=== PATIENT | female | born 1995 | race American Indian/Alaskan Native ===

== ENCOUNTER 2018-06-27 08:54 | Emergency (ER) | payer OTHER ==
--- NOTE | 2018-06-27 09:05 | Emergency Department Report ---
ED Recheck HPI - General Chief Complaint: Shoulder Injury Stated Complaint: RT SIDE RESTRICTION Time Seen by Provider: 06/27/18 09:00 Source: patient Mode of arrival: Ambulatory Limitations: No Limitations - History of Present Illness Initial Comments: Patient is a 23-year-old female who comes to the ER today after hurting her shoulder 2 weeks ago. [place] to work but without enough. She comes to the ER for a return to work note. She is having no problems with her shoulder. She has full range of motion. Past medical history none Home medications none MD Complaint: other - Related Data Allergies Allergy/AdvReac Type Severity Reaction Status Date / Time No Known Allergies Allergy Unverified 06/27/18 08:58 ED Review of Systems ROS: Stated complaint: RT SIDE RESTRICTION Other details as noted in HPI Comment: All other systems reviewed and negative Constitutional: denies: chills Eyes: denies: eye pain ENT: denies: ear pain Respiratory: denies: cough Cardiovascular: denies: palpitations Endocrine: denies: see HPI Gastrointestinal: denies: nausea Genitourinary: denies: urgency Musculoskeletal: as per HPI. denies: back pain Skin: denies: lesions Neurological: denies: headache Psychiatric: denies: anxiety Hematological/Lymphatic: denies: easy bleeding ED Past Medical Hx - Past Medical History Previous Medical History?: No - Surgical History Past Surgical History?: No - Family History Family history: no significant - Social History Smoking Status: Never Smoker Substance Use Type: None ED Physical Exam - General Limitations: No Limitations General appearance: alert - Head Head exam: Present: atraumatic - Eye Eye exam: Present: normal appearance - ENT ENT exam: Present: mucous membranes moist - Neck Neck exam: Present: normal inspection - Respiratory Respiratory exam: Present: normal lung sounds bilaterally - Cardiovascular Cardiovascular Exam: Present: regular rate - GI/Abdominal GI/Abdominal exam: Present: soft, normal bowel sounds - Extremities Exam Extremities exam: Present: normal inspection, full ROM, normal capillary refill. Absent: tenderness, pedal edema, joint swelling - Back Exam Back exam: Present: normal inspection, full ROM - Neurological Exam Neurological exam: Present: alert, oriented X3 - Psychiatric Psychiatric exam: Present: normal affect, normal mood - Skin Skin exam: Present: warm, dry, intact ED Course Vital Signs 06/27/18 09:00 Temperature 98 F Pulse Rate 57 L Respiratory 16 Rate Blood Pressure 108/54 [Left] O2 Sat by Pulse 100 Oximetry ED Recheck MDM - Core Measures Measure Exclusions: not indicated - Medical Decision Making needs rtw note she was lifting 2 w ago and felt a pop no further problems at this time Vital Signs 06/27/18 09:00 Temperature 98 F Pulse Rate 57 L Respiratory 16 Rate Blood Pressure 108/54 [Left] O2 Sat by Pulse 100 Oximetry Critical care attestation.: If time is entered above; I have spent that time in minutes in the direct care of this critically ill patient, excluding procedure time. ED Disposition Clinical Impression: Wellness examination Disposition: DC-01 TO HOME OR SELFCARE Is pt being admited?: No Does the pt Need Aspirin: No Condition: Stable Additional Instructions: return to work without restriction any additional issues see Dr Gibson Referral below Referrals: HILARIA GIBSON MD [Staff Physician] - 3-5 Days Forms: Work/School Release Form(ED) Time of Disposition: 09:04
== END 2018-06-27 09:24 | disposition home or self-care (01) ==
LOC: ED 08:54
DX: Z00.00 Encounter for general adult medical examination without abnormal findings (principal)
CPT/HCPCS: 99282

== ENCOUNTER 2018-11-22 09:42 | Emergency (ER) | payer SELFPAY ==
[2018-11-22 09:50] VITALS: BP 106/63
--- NOTE | 2018-11-22 10:19 | Emergency Department Report ---
Chief Complaint: Extremity Problem,Nontraumatic Stated Complaint: LFT KNEE PAIN Time Seen by Provider: 11/22/18 10:17 - HPI History of Present Illness: 23 yo female presents with minor knee pain on left extremity for one week. No hx of trauma. On my exam, neurovascularly intact. REferred to orthopedic surgeon. MSE performed completed. NO evidence of emergent condition or limb threatening disease entity. - Exam Vital Signs: Vital Signs 11/22/18 09:48 Temperature 98.3 F Pulse Rate 53 L Respiratory 16 Rate Blood Pressure 106/63 O2 Sat by Pulse 100 Oximetry MSE screening note: Focused history and physical exam performed. Due to findings the following was ordered: ED Disposition for MSE Clinical Impression: Knee pain, left Disposition: Z-07 MED SCREENING EXAM-LEFT Is pt being admited?: No Does the pt Need Aspirin: No Condition: Stable Referrals: HILARIA MÁRQUEZ MD [Staff Physician] - as needed Forms: Work/School Release Form(ED)
== END 2018-11-22 10:23 | disposition left against medical advice (07) ==
LOC: ED 09:42
DX: M25.562 Pain in left knee (principal); Z53.21 Procedure and treatment not carried out due to patient leaving prior to being seen by health care provider

== ENCOUNTER 2018-12-08 09:11 | Emergency (ER) | payer OTHER ==
[2018-12-08 09:18] VITALS: BP 113/55
--- NOTE | 2018-12-08 10:20 | Emergency Department Report ---
ED General Adult HPI - General Chief complaint: Urogenital-Female Stated complaint: LUMP ON BREAST Time Seen by Provider: 12/08/18 09:55 Source: patient Mode of arrival: Ambulatory Limitations: No Limitations - History of Present Illness Initial comments: Patient is 23 years old female with no significant past medical history. Patient presented to the ER complaining of left breast mass and tenderness for the last 3 days. Patient denied any nipple discharge, fever or chills, nausea or vomiting. Patient stated that her period is irregular because she is taking oral contraceptive pills. She stated that she had some abdominal cramping this morning. - Related Data Allergies Allergy/AdvReac Type Severity Reaction Status Date / Time No Known Allergies Allergy Unverified 06/27/18 08:58 ED Review of Systems ROS: Stated complaint: LUMP ON BREAST Other details as noted in HPI Comment: All other systems reviewed and negative Constitutional: denies: chills, fever Respiratory: denies: cough, shortness of breath, SOB with exertion, wheezing Cardiovascular: denies: chest pain, palpitations Gastrointestinal: denies: abdominal pain, nausea, vomiting ED Past Medical Hx - Past Medical History Previous Medical History?: No - Surgical History Past Surgical History?: No Hx Coronary Stent: No Hx Open Heart Surgery: No Hx Pacemaker: No Hx Internal Defibrillator: No Hx Cholecystectomy: No Hx Appendectomy: No Hx Breast Surgery: No - Social History Smoking Status: Never Smoker Substance Use Type: None ED Physical Exam - General Limitations: No Limitations General appearance: alert, in no apparent distress - Head Head exam: Present: atraumatic - Eye Eye exam: Present: normal appearance, PERRL - ENT ENT exam: Present: normal exam, normal orophraynx, mucous membranes moist - Neck Neck exam: Present: normal inspection, full ROM. Absent: tenderness, meningismus, lymphadenopathy, thyromegaly - Respiratory Respiratory exam: Present: normal lung sounds bilaterally - Cardiovascular Cardiovascular Exam: Present: normal heart sounds - GI/Abdominal GI/Abdominal exam: Present: soft. Absent: distended, tenderness, guarding - Extremities Exam Extremities exam: Present: normal inspection - Neurological Exam Neurological exam: Present: alert, oriented X3, CN II-XII intact - Skin Skin exam: Present: other (right breast exam showed a deep soft tissue mass, mobile, tender to palpation.) ED Course Vital Signs 12/08/18 09:16 Temperature 98.5 F Pulse Rate 54 L Respiratory 18 Rate Blood Pressure 113/55 [Right] O2 Sat by Pulse 100 Oximetry ED Medical Decision Making - Lab Data Result diagrams: 12/08/18 11:30 12/08/18 11:30 - Radiology Data Radiology results: report reviewed Referring Physician: LIAT JURADO Patient Name: AMRIT PABON Date of : 1995 Sex: Female Report Date: 2018-12-08 Report Status: Finalized Findings [facility] [address] [place] [address] Ultrasound Report Signed Patient: AMRIT PABON MR #: [id number] : 1995 Acct:[id number] Age/Sex: 23 / F ADM Date: 12/08/18 Loc: ED Attending Dr: Ordering Physician: LIAT JURADO Date of Service: 12/08/18 Procedure(s): US OB <= 14 weeks fetus Accession Number(s): [id number] cc: LIAT JURADO US OB <= 14 weeks fetus INDICATION / CLINICAL INFORMATION: abdominal pain in . COMPARISON: None available. FINDINGS: A single live fetus of approximately 5 weeks 6 days gestational age is seen in the uterus. A yolk sac and pole are identified. heart rate is 96. A 2.2 cm cyst is seen in the right ovary. The left ovary is normal. IMPRESSION: Single live fetus of approximately 5 weeks 6 days gestational age in the uterus.. Heart rate is 96. A repeat ultrasound is recommended to reassess the heart rate in a few days. There is a 2.2 cm right ovarian cyst Signer Name: Mason Collins MD FACR Signed: 12/08/2018 2:33 PM Workstation Name: [id number] Transcribed By: MS Dictated By: Mason Collins MD Electronically Authenticated By: Mason Collins MD Signed Date/Time: 12/08/18 1433 DD/ 143 TD/TT: - Medical Decision Making Patient is 23 years old female with no significant past medical history. Patient presented to the ER complaining of left breast mass and tenderness for the last 3 days. Patient denied any nipple discharge, fever or chills, nausea or vomiting. Patient stated that her period is irregular because she is taking oral contraceptive pills. She stated that she had some abdominal cramping this morning. Patient just came back positive for . Ultrasound showed a live intrauterine fetus at the gestational age of 5 weeks and 6 days. Right ovarian cyst. Patient is given my [facility] to follow-up with in the next 2-3 days patient also given a prescription for vitamins. She advised to return to the ER if symptoms are not improved. Critical care attestation.: If time is entered above; I have spent that time in minutes in the direct care of this critically ill patient, excluding procedure time. ED Disposition Clinical Impression: Abdominal pain affecting , antepartum, Breast tenderness in female Disposition: DC-01 TO HOME OR SELFCARE Is pt being admited?: No Condition: Stable Instructions: Abdominal Pain in (ED) Referrals: [facility] [Provider Group] - 3-5 Days
[2018-12-08 10:50] LABS: HCG Qualitative,Urine Positive (Negative)
[2018-12-08 11:44] LABS: Basophils % (Auto) 0.5 % (0.0-1.8); Eosinophils # (Auto) 0.2 K/mm3 (0.0-0.4); Eosinophils % (Auto) 3.2 % (0.0-4.3); Hematocrit 40.6 % (30.3-42.9); Hemoglobin 13.9 gm/dl (10.1-14.3); Lymphocytes # (Auto) 1.3 K/mm3 (1.2-5.4); Lymphocytes % (Auto) 24.8 % (13.4-35.0); Mean Corpuscular HGB Conc 34 % (30-34); Mean Corpuscular Volume 91 fl (79-97); Monocytes # (Auto) 0.5 K/mm3 (0.0-0.8); Monocytes % (Auto) 8.8 % (0.0-7.3); Platelet Count 236 K/mm3 (140-440); Red Blood Count 4.45 M/mm3 (3.65-5.03); Red Cell Distribution Width 12.9 % (13.2-15.2)
[2018-12-08 12:04] LABS: BUN/Creatinine Ratio 20; Blood Urea Nitrogen 14 mg/dL (7-17); Calcium 9.2 mg/dL (8.4-10.2); Hemolysis Index 6
--- NOTE | 2018-12-08 14:37 | Ultrasound Report ---
US OB <= 14 weeks fetus INDICATION / CLINICAL INFORMATION: abdominal pain in . COMPARISON: None available. FINDINGS: A single live fetus of approximately 5 weeks 6 days gestational age is seen in the uterus. A yolk sac and pole are identified. heart rate is 96. A 2.2 cm cyst is seen in the right ovary. The left ovary is normal. IMPRESSION: Single live fetus of approximately 5 weeks 6 days gestational age in the uterus.. Heart rate is 96. A repeat ultrasound is recommended to reassess the heart rate in a few days. There is a 2.2 cm r ight ovarian cyst Signer Name: Mason Collins MD FACR Signed: 12/08/2018 2:33 PM Workstation Name: [id number]
--- NOTE | 2018-12-08 14:48 | Ultrasound Report ---
US OB transvaginal INDICATION / CLINICAL INFORMATION: ABDOMINAL PAIN. COMPARISON: None available. FINDINGS: Single live fetus of approximately 5 weeks 6 days gestational age in the uterus. heart rate is 96. There is a 2.2 cm cystic lesion in the right ovary. The left ovary is unremarkable in appearance. IMPRESSION: Single live fetus of approximately 5 weeks 6 days gestational age in the uterus with heart rate 96. Since the heart rate is low, a repeat study should be obtained to reassess heart rat e and a few days. 2.2 cm cystic lesion in the right ovary Signer Name: Mason Collins MD FACR Signed: 12/08/2018 2:44 PM Workstation Name: [id number]
== END 2018-12-08 15:14 | disposition home or self-care (01) ==
LOC: ED 09:11
DX: O92.29 Other disorders of breast associated with pregnancy and the puerperium (principal); Z3A.01 Less than 8 weeks gestation of pregnancy
CPT/HCPCS: 36415; 76801; 76817; 80048; 81025; 84702; 85025

== ENCOUNTER 2018-12-21 19:13 | Emergency (ER) | payer OTHER ==
[2018-12-21 20:37] VITALS: BP 104/54
[2018-12-21 21:23] LABS: Basophils % (Auto) 0.5 % (0.0-1.8); Eosinophils # (Auto) 0.2 K/mm3 (0.0-0.4); Eosinophils % (Auto) 3.4 % (0.0-4.3); Lymphocytes # (Auto) 2.1 K/mm3 (1.2-5.4); Lymphocytes % (Auto) 29.4 % (13.4-35.0); Mean Corpuscular HGB Conc 33 % (30-34); Mean Corpuscular Volume 93 fl (79-97); Monocytes # (Auto) 0.6 K/mm3 (0.0-0.8); Monocytes % (Auto) 8.1 % (0.0-7.3); Platelet Count 247 K/mm3 (140-440); Red Blood Count 4.21 M/mm3 (3.65-5.03); Red Cell Distribution Width 12.8 % (13.2-15.2)
[2018-12-21 21:37] LABS: Bilirubin,Urine NEG (Negative); Blood,Urine MOD (Negative); Color,Urine Yellow (Yellow); Protein,Urine <15 mg/dL mg/dL (Negative)
--- NOTE | 2018-12-22 00:13 | Ultrasound Report ---
ULTRASOUND OBSTETRIC Indication: vaginal bleed COMPARISON: 12/08/2018 Findings: There is a single, living intrauterine . [place]it-rump length = 1.49 cm = 7 weeks, 6 day(s). heart rate is 161 beats per minute. The ovaries are normal. There is no free fluid. Impression: Single, living intrauterine with estimated sonographic age of 7 weeks, 6 day(s). Signer Name: Darinel Ying MD Signed: 12/22/2018 12:09 AM Workstation Name: [id number]
--- NOTE | 2018-12-22 00:45 | Emergency Department Report ---
ED Female HPI - General Chief complaint: Vaginal Bleeding Stated complaint: BLEEDING, 8 WEEKS Time Seen by Provider: 12/22/18 00:39 Source: patient Mode of arrival: Ambulatory Limitations: No Limitations - History of Present Illness Initial comments: 23-year-old -Swedish female presents to the emergency room reporting that she is approximately 8 weeks with abdominal pain and vaginal spotting that started today. Patient is not sure when her last menstrual period. Patient has not started care. She does report having an appointment next week at [facility]. Patient reports she's having spotting on the toilet paper but has not filled any pads. Patient denies any abdominal pain at this moment. She has no past medical history currently takes no medications on a daily basis and has no known drug allergies. MD Complaint: vaginal bleeding Onset/Timin Radiation: suprapubic Severity scale (0 -10): 0 Consistency: now resolved Are you Now?: Yes Associated Symptoms: vaginal bleeding - Related Data Sexually active: Yes : 1 Previous Rx's Medication Instructions Recorded Last Taken Type Vit-Fe Fumar-FA [ 1 tab PO QDAY #30 tablet 12/08/18 Unknown Rx Vitamin] Allergies Allergy/AdvReac Type Severity Reaction Status Date / Time No Known Allergies Allergy Unverified 06/27/18 08:58 ED Review of Systems ROS: Stated complaint: BLEEDING, 8 WEEKS Other details as noted in HPI Comment: All other systems reviewed and negative ED Past Medical Hx - Past Medical History Previous Medical History?: No - Surgical History Past Surgical History?: No Hx Coronary Stent: No Hx Open Heart Surgery: No Hx Pacemaker: No Hx Internal Defibrillator: No Hx Cholecystectomy: No Hx Appendectomy: No Hx Breast Surgery: No - Social History Smoking Status: Never Smoker Substance Use Type: None - Medications Home Medications: Home Medications Medication Instructions Recorded Confirmed Last Taken Type Vit-Fe Fumar-FA [ 1 tab PO QDAY #30 tablet 12/08/18 Unknown Rx Vitamin] ED Physical Exam - General Limitations: No Limitations General appearance: alert, in no apparent distress - Head Head exam: Present: atraumatic, normocephalic - Eye Eye exam: Present: normal appearance - ENT ENT exam: Present: mucous membranes moist - Neck Neck exam: Present: normal inspection - Respiratory Respiratory exam: Present: normal lung sounds bilaterally. Absent: respiratory distress - Cardiovascular Cardiovascular Exam: Present: regular rate, normal rhythm. Absent: systolic murmur, diastolic murmur, rubs, gallop - GI/Abdominal GI/Abdominal exam: Present: soft, normal bowel sounds. Absent: distended, t enderness - Extremities Exam Extremities exam: Present: normal inspection - Back Exam Back exam: Present: normal inspection - Neurological Exam Neurological exam: Present: alert, oriented X3 - Psychiatric Psychiatric exam: Present: normal affect, normal mood - Skin Skin exam: Present: warm, dry, intact, normal color. Absent: rash ED Course Vital Signs 12/21/18 20:34 Temperature 98.7 F Pulse Rate 53 L Respiratory 16 Rate Blood Pressure 104/54 O2 Sat by Pulse 100 Oximetry ED Medical Decision Making - Lab Data Result diagrams: 12/21/18 20:52 - Medical Decision Making 23-year-old -Swedish female presents to the emergency room reporting that she is approximately 8 weeks with abdominal pain and vaginal spotting that started today. Patient is not sure when her last menstrual period. Patient has not started care. She does report having an appointment next week at [facility]. Patient reports she's having spotting on the toilet paper but has not filled any pads. Patient denies any abdominal pain at this moment. She has no past medical history currently takes no medications on a daily basis and has no known drug allergies. Critical care attestation.: If time is entered above; I have spent that time in minutes in the direct care of this critically ill patient, excluding procedure time. ED Disposition Clinical Impression: Threatened miscarriage in early Qualifiers: Weeks of gestation: 8 weeks Qualified Code(s): Z3A.08 - 8 weeks gestation of Disposition: DC-01 TO HOME OR SELFCARE Is pt being admited?: No Does the pt Need Aspirin: No Condition: Stable Instructions: Threatened Miscarriage (ED) Referrals: PRIMARY CARE, [Primary Care Provider] - 3-5 Days [facility] [Outside] - 3-5 Days
== END 2018-12-22 00:55 | disposition home or self-care (01) ==
LOC: ED 19:13
DX: O20.0 Threatened abortion (principal); Z3A.08 8 weeks gestation of pregnancy
CPT/HCPCS: 36415; 76801; 81001; 84702; 85025; 86900; 86901

== ENCOUNTER 2019-02-25 19:45 | Emergency (ER) | payer MEDICAID ==
[2019-02-25 20:46] VITALS: BP 112/50
[2019-02-25 23:50] LABS: Bilirubin,Urine NEG (Negative); Blood,Urine NEG (Negative); Color,Urine Yellow (Yellow); Mucus,Urine FEW /HPF; Protein,Urine <15 mg/dL mg/dL (Negative); Urobilinogen,Urine < 2.0 mg/dL (<2.0)
[2019-02-25] MEDS ORDERED: ONDANSETRON 4 MG ODT TAB PO ONE (23:52)
[2019-02-25] MEDS ORDERED: ACETAMINOPHEN 500 MG TAB PO ONE (23:52)
--- NOTE | 2019-02-25 23:58 | Emergency Department Report ---
ED Female HPI - General Chief complaint: Abdominal Pain Stated complaint: EMESIS/ABD CRAMPS/17WKS Time Seen by Provider: 02/25/19 23:52 Source: patient Mode of arrival: Ambulatory Limitations: No Limitations - History of Present Illness Initial comments: Joy is a healthy 23 yo female without significant past medical hx who presents with back cramping and pelvic cramping for 2 weeks. She has been only able to tolerate certain foods. Denies vaginal bleeding. Denies dysuria. Denies fever. [place]. She plans to move to [place]. She has not received any care. She is currently 18 weeks 1 day according to dates According to EMR, US obtained here in December confirmed IUP. Complaint: pelvic pain -: Gradual, week(s) (2) Severity: mild Quality: cramping Consistency: constant Improves with: none Worsens with: none Are you Now?: Yes Last Menstrual Period: 10/21/18 EDC: 07/28/19 - Related Data Previous Rx's Medication Instructions Recorded Last Taken Type Vit-Fe Fumar-FA [ 1 tab PO QDAY #30 tablet 12/08/18 Unknown Rx Vitamin] Ondansetron [Zofran Odt] 4 mg PO Q8HR PRN #10 tab.rapdis 02/25/19 Unknown Rx Allergies Allergy/AdvReac Type Severity Reaction Status Date / Time No Known Allergies Allergy Unverified 06/27/18 08:58 ED Review of Systems ROS: Stated complaint: EMESIS/ABD CRAMPS/17WKS Other details as noted in HPI Comment: All other systems reviewed and negative Constitutional: denies: fever, malaise Cardiovascular: denies: chest pain Gastrointestinal: abdominal pain, nausea. denies: vomiting ED Past Medical Hx - Past Medical History Previous Medical History?: No - Surgical History Past Surgical History?: No Hx Coronary Stent: No Hx Open Heart Surgery: No Hx Pacemaker: No Hx Internal Defibrillator: No Hx Cholecystectomy: No Hx Appendectomy: No Hx Breast Surgery: No - Social History Smoking Status: Never Smoker Substance Use Type: None - Medications Home Medications: Home Medications Medication Instructions Recorded Confirmed Last Taken Type Vit-Fe Fumar-FA [ 1 tab PO QDAY #30 tablet 12/08/18 Unknown Rx Vitamin] Ondansetron [Zofran Odt] 4 mg PO Q8HR PRN #10 tab.rapdis 02/25/19 Unknown Rx ED Physical Exam - General Limitations: No Limitations General appearance: alert, in no apparent distress - Head Head exam: Present: atraumatic, normocephalic - Eye Eye exam: Present: normal appearance - ENT ENT exam: Present: mucous membranes moist - Neck Neck exam: Present: normal inspection, full ROM - Respiratory Respiratory exam: Present: normal lung sounds bilaterally. Absent: respiratory distress, wheezes, rales, rhonchi - Cardiovascular Cardiovascular Exam: Present: regular rate, normal rhythm, normal heart sounds. Absent: systolic murmur, diastolic murmur, rubs, gallop - GI/Abdominal GI/Abdominal exam: Present: soft, normal bowel sounds. Absent: distended, tenderness, guarding, rebound - Extremities Exam Extremities exam: Present: normal inspection - Back Exam Back exam: Present: normal inspection - Neurological Exam Neurological exam: Present: alert, oriented X3 - Psychiatric Psychiatric exam: Present: normal affect, normal mood - Skin Skin exam: Present: warm, dry, intact, normal color. Absent: rash ED Course Vital Signs 02/25/19 20:00 Temperature 98.2 F Pulse Rate 67 Respiratory 18 Rate Blood Pressure 112/50 O2 Sat by Pulse 98 Oximetry ED Medical Decision Making - Lab Data Laboratory Results - last 24 hr 02/25/19 Unknown Urine Color Yellow Urine Turbidity Slightly-cloudy Urine pH 5.0 Ur Specific [place] 1.015 Urine Protein <15 mg/dl Urine Glucose (UA) Neg Urine Ketones Neg Urine Blood Neg Urine Nitrite Neg Urine Bilirubin Neg Urine Urobilinogen < 2.0 Ur Leukocyte Esterase Neg Urine WBC (Auto) 1.0 Urine RBC (Auto) 2.0 U Epithel Cells (Auto) 5.0 Urine Mucus Few - Medical Decision Making Pelvic back pain likely round ligament pain. Has intact appetite but only able to tolerate certain foods. No vaginal bleeding. She appears well, smiling and laughing during examination. I stressed the need for care. She came to [place] to cancel medicaid insurance. She will travel to [place] tomorrow. I did provide referral to local clinic. prescribed Zofran UA reviewed, unremarkable. Critical care attestation.: If time is entered above; I have spent that time in minutes in the direct care of this critically ill patient, excluding procedure time. ED Disposition Clinical Impression: Round ligament pain, Second trimester Disposition: DC- TO HOME OR SELFCARE Is pt being admited?: No Does the pt Need Aspirin: No Condition: Stable Instructions: Abdominal Pain in (ED) Prescriptions: Ondansetron [Zofran Odt] 4 mg PO Q8HR PRN #10 tab.rapdis PRN Reason: Nausea Referrals: [facility] [Outside] - 3-5 Days
== END 2019-02-26 00:36 | disposition home or self-care (01) ==
LOC: ED 19:45
DX: O26.892 Other specified pregnancy related conditions, second trimester (principal); R10.2 Pelvic and perineal pain; Z3A.18 18 weeks gestation of pregnancy
CPT/HCPCS: 81001; Q0162

== ENCOUNTER 2019-04-27 03:14 | Outpatient (CLI) | payer MEDICAID ==
[2019-04-27 04:00] VITALS: BP 103/55
[2019-04-27 04:56] LABS: Bacteria,Urine 1+ /HPF (Negative); Bilirubin,Urine NEG (Negative); Blood,Urine MOD (Negative); Color,Urine Yellow (Yellow); Urobilinogen,Urine < 2.0 mg/dL (<2.0)
[2019-04-27] MEDS ORDERED: LACTATED RINGERS 1,000 ML IV SCH (05:21)
[2019-04-27] MEDS ORDERED: LACTATED RINGERS 1,000 ML ONE (05:21)
== END 2019-04-27 07:05 | disposition home or self-care (01) ==
LOC: EDSTATUS 03:29 → TRG 03:37
PROVIDERS: ATTEND Obstetrics & Gynecology
DX: O26.892 Other specified pregnancy related conditions, second trimester (principal); R10.9 Unspecified abdominal pain; M54.5 Low back pain; R39.89 Other symptoms and signs involving the genitourinary system; O47.02 False labor before 37 completed weeks of gestation, second trimester; Z3A.26 26 weeks gestation of pregnancy
CPT/HCPCS: 59025; 81001; 87076; 87086; 87186; 96361; 96365; J0690; J7120; 96360

== ENCOUNTER 2019-05-24 00:52 | Inpatient (IN) | payer MEDICAID ==
[2019-05-24] MEDS ORDERED: LACTATED RINGERS 1,000 ML ONE (00:58)
[2019-05-24] MEDS ORDERED: ePHEDrine SULFATE 50 MG/1 ML INJ IV PRN ×2 (01:14→11:25)
[2019-05-24] MEDS ORDERED: TERBUTALINE 1 MG/1 ML INJ SUB-Q PRN (01:14)
[2019-05-24] MEDS ORDERED: TERBUTALINE 1 MG/1 ML INJ IVP PRN (01:14)
[2019-05-24] MEDS ORDERED: LIDOCAINE (2%) 20 MG/1 ML VIAL 20 ML MDV INFILTRATI ONE (01:14)
[2019-05-24] MEDS ORDERED: MINERAL OIL 30 ML ORAL LIQD PO PRN (01:14)
[2019-05-24] MEDS ORDERED: AMPICILLIN/NS 2 GM/100 ML 2 GM/100 ML BAG IV ONE (01:14)
[2019-05-24] MEDS ORDERED: hydrALAZINE 20 MG/1 ML INJ ONE (01:18)
[2019-05-24] MEDS ORDERED: MAGNESIUM SULFATE 4 GM/100 ML BAG IV ONE (01:20)
[2019-05-24] MEDS ORDERED: hydrALAZINE 20 MG/1 ML INJ IV PRN (01:21)
[2019-05-24] MEDS ORDERED: levETIRAcetam 1,000 MG in DEXTROSE 5% IN WATER 100 ML IV ONE (01:37)
[2019-05-24] MEDS ORDERED: MAGNESIUM SULFATE 40GM/1000ML 40 GM/1,000 ML BAG IV SCH (02:00)
[2019-05-24] MEDS ORDERED: OXYTOCIN 20 UNIT/1000ML DRIP 20 UNITS/1,000 ML BAG IV SCH ×3 (02:00→15:00)
[2019-05-24 02:11] LABS: Hematocrit 37.9 % (30.3-42.9); Hemoglobin 12.6 gm/dl (10.1-14.3); Mean Corpuscular HGB Conc 33 % (30-34); Mean Corpuscular Volume 93 fl (79-97); Red Blood Count 4.07 M/mm3 (3.65-5.03); Red Cell Distribution Width 13.3 % (13.2-15.2)
[2019-05-24 02:12] LABS: Basophils # (Auto) 0.1 K/mm3 (0.0-0.1); Basophils % (Auto) 0.9 % (0.0-1.8); Eosinophils # (Auto) 0.2 K/mm3 (0.0-0.4); Eosinophils % (Auto) 1.8 % (0.0-4.3); Lymphocytes # (Auto) 1.6 K/mm3 (1.2-5.4); Monocytes # (Auto) 0.8 K/mm3 (0.0-0.8); Monocytes % (Auto) 8.9 % (0.0-7.3); Platelet Count 255 K/mm3 (140-440)
[2019-05-24] MEDS ORDERED: SODIUM CHLORIDE 0.45% 1000 ML 1,000 ML IV ONE (02:14)
[2019-05-24 02:33] LABS: Alanine Aminotransferase 23 units/L (7-56)
[2019-05-24 02:42] LABS: Hepatitis C Virus Antibody Non-Reactive (NonReactive)
--- NOTE | 2019-05-24 02:56 | Ultrasound Report ---
ULTRASOUND OBSTETRIC, follow-up Indication: seizure Findings: There is a single intrauterine . BPD = 7.3 cm = 29 weeks, 3 day(s). Head circumference = 25.9 cm = 28 weeks, 2 day(s). Abdominal circumference = 22.6 cm = 27 weeks, 0 day(s). Femur length = 5.4 cm = 28 weeks, 4 day(s). Overall estimated sonographic age = 28 weeks, 2 day(s). heart rate is 121 beats per minute. Estimated weight is 1131 grams position is cephalic. Cervix appears closed. Placenta is posterior and grade 0 . Amniotic fluid volume appears normal. Amniotic fluid index is 8.7 cm Impression: 1. Single living intrauterine with estimated sonographic age of 28 weeks, 2 day(s). 2. No sonographic abnormality identified. Signer Name: Darinel Ying MD Signed: 05/24/2019 2:52 AM Workstation Name: [id number]
--- NOTE | 2019-05-24 02:57 | Ultrasound Report ---
Biophysical profile INDICATION: labor COMPARISON: None FINDINGS: breathing movement: 0/2 movement: 2/2 posture and tone: 2/2 Qualitative amniotic fluid volume: 2/2 IMPRESSION: Total score for biophysical profile is 6/8 heart rate is 121 bpm Signer Name: Darinel Ying MD Signed: 05/24/2019 2:52 AM Workstation Name: [id number]
[2019-05-24 03:24] LABS: Uric Acid 11.3 mg/dL (3.5-7.6)
[2019-05-24] MEDS: BETAMET ACET/BETAMET NA PH 6 MG/ML INJ 5 ML MDV IM SCH ×2 (03:43→05:30)
[2019-05-24] MEDS ORDERED: DINOPROSTONE 10 MG VAG SUPP VG ONE (04:26)
--- NOTE | 2019-05-24 05:55 | History and Physical Report ---
History of Present Illness Date of examination: 05/24/19 Date of admission: 05/24/19 01:14 Chief complaint: had a seizure at home: observed by spouse. 30 wks gestation. Primigravida. History of present illness: 30 wks gestation with KVNG 08/02/2019. Primigravida.Was brought into the hospital ambulance following a seizure at home. patient was protected from falling by spouse and did not hit her head uncontrolled. Had been diagnosed with preeclampsia by her [employer]st MD 3 days and had been started on labetalol. Prior to 2 days ago, her had progressing fine, she stated. Past History Past Medical History: denies: asthma, heart disease, hypertension, diabetes, neurologic, seizure Past Surgical History: no surgical history Social history: no significant social history - Obstetrical History Expected Date of Delivery: 08/02/19 Actual Gestation: 30 Week(s) 0 Day(s) : 1 Para: 0 Medications and Allergies Allergies Allergy/AdvReac Type Severity Reaction Status Date / Time No Known Allergies Allergy Verified 04/27/19 05:23 Home Medications Medication Instructions Recorded Confirmed Last Taken Type Vit-Fe Fumar-FA [ 1 tab PO QDAY #30 tablet 12/08/18 04/27/19 04/26/19 10:00 Rx Vitamin] Ondansetron [Zofran Odt] 4 mg PO Q8HR PRN #10 tab.rapdis 02/25/19 04/27/19 Unknown Rx Active Meds: Active Medications Betamethasone Acet/Betameth SodPhos (Celestone Soluspan) 12 mg IM Q24HR ANDRIA Last Admin: 05/24/19 03:43 Dose: 12 mg Documented by: Ephedrine Sulfate (Ephedrine Sulfate) 10 mg IV Q2M PRN PRN Reason: Hypotension Hydralazine HCl (Apresoline) 5 mg IV Q30MIN PRN PRN Reason: Blood Pressure Oxytocin/Sodium Chloride (Pitocin/Ns 20 Unit/1000ml Drip) 20 units in 1,000 mls @ 125 mls/hr IV DIRECT ANDRIA Lactated Ringer's (Lactated Ringers) 1,000 mls @ 125 mls/hr IV DIRECT ANDRIA Ampicillin Sodium (Ampicillin/Ns 1 Gm/50 Ml) 1 gm in 50 mls @ 100 mls/hr IV Q4HR ANDRIA; Protocol Magnesium Sulfate (Magnesium Sulfate 40gm/1000ml) 40 gm in 1,000 mls @ 50 mls/hr IV DIRECT ANDRIA Last Admin: 05/24/19 02:10 Dose: 2 gm/hr, 50 mls/hr Documented by: Labetalol HCl (Labetalol) 200 mg PO BID [place] Mineral Oil (Mineral Oil) 30 ml PO QHS PRN PRN Reason: Constipation Terbutaline Sulfate (Brethine) 0.25 mg SUB-Q ONCE PRN PRN Reason: Hyperstimulation/Hypertonicity Terbutaline Sulfate (Brethine) 0.25 mg IVP ONCE PRN PRN Reason: Hyperstimulation/Hypertonicity Review of Systems All systems: negative Constitutional: chronic headaches Eyes: no blurred vision, no diplopia, no photophobia, no bulging eye Cardiovascular: no chest pain Respiratory: no cough, no shortness of breath, no wheezing Gastrointestinal: no abdominal pain, no vomiting (denied epigastric pains.) - Vital Signs Vital signs: Vital Signs Pulse BP 86 152/100 05/24/19 00:59 05/24/19 00:59 Temp Pulse Resp BP Pulse Ox 98.5 F 85 18 143/98 89 05/24/19 02:55 05/24/19 05:47 05/24/19 02:55 05/24/19 05:35 05/24/19 05:47 - Physical Exam Lungs: Positive: Normal air movement Abdomen: Positive: normal appearance, soft, distention. Negative: tenderness, guarding Uterus: Positive: enlarged, normal contour. Negative: tender Deep Tendon Reflex Grade: Normal +2 - Obstetrical FHR: category 2 Cervical Dilatation: 1 Cervical Effacement Percentage: 50 station: 0-2 Results Result Diagrams: 05/24/19 01:15 05/24/19 01:15 Abnormal lab results 05/24/19 05/24/19 Range/Units 01:15 01:15 [place] % (Auto) 8.9 H (0.0-7.3) % Uric Acid 11.3 H (3.5-7.6) mg/dL Lactate Dehydrogenase 265 H (91-180) units/L All other labs normal. Ultrasound: report reviewed ([facility] 09/14) Assessment and Plan - Patient Problems (1) 30 weeks gestation of Current Visit: Yes Status: Acute (2) Eclampsia (toxemia of ) Current Visit: Yes Status: Acute Plan to address problem: Started on MgSO4, Hydrallazine, celestone, IV ampicillin, PO labetalol. O bstetrical done and report on file. Consulted with MFM at [facility] and Dr Prince responded and advised proceeding with delivery once stable. Of options for delivery, Dr Prince okayed trial of induction if stable otherwise. NICU consulted. Explained the situation to patient and her family and answered all their questions.
--- NOTE | 2019-05-24 06:44 | Consultation ---
Consult Note - Parent Education I met with parent(s) and discussed the following:: Need for NICU admission, Poss ible need for intubation and surfactant or other resp support, Temperature regulation, Head ultrasounds to evaluate IVH, Possible need for IV fluids/TPN and IV antibiotics, Possible need for umbilical lines, Importance of providing breast milk & encouraged pumping aft delivery, Donor breast milk if baby meets criteria after , Slow feeding advancement and monitoring of tolerance. NG/OG feeds, Need to monitor for jaundice, Data for survival & survival without significant co-morbidities Parent(s) demonstrated understanding of all the information:: Yes Additional Comment: Mother sleeping during consult. (postictal, mag bolus and other medications recently) Spoke with family members and father in room. Encouraged to call with questions or if mother wakes and wants more information. Assessment and Plan - Assessment Gestation:: 30 Estimated Weight: 1130 Baby's gender: Female - Plan Plan: Agree with Mag & steroids Will attend delivery Please call NICU with questions
[2019-05-24] MEDS: AMPICILLIN/NS 1 GM/50 ML 1 GM/50 ML BAG IV SCH (08:49)
--- NOTE | 2019-05-24 10:34 | Progress Note ---
Assessment and Plan Eclampsia Plans: Epidural AROM after epidural with internal monitoring Oxytocin maternal/ well being overall reassuring at bedside Phone consult with Dr Prince: recommendation delivery Valeri Romo MD Subjective - Subjective Date of service: 05/24/19 Interval history: Patient awake and feeling rectal pressure On magnesium sulfate at 2gm/hr SP celestone 05/24/19 at 03:43 NO VB, no LOF, GFM Objective - Vital Signs Vital Signs: Vital Signs - 12hr 05/24/19 05/24/19 05/24/19 00:59 01:09 01:13 Temperature Pulse Rate 86 82 86 Respiratory Rate Blood Pressure 152/100 157/103 Blood Pressure [Left] O2 Sat by Pulse 96 Oximetry 05/24/19 05/24/19 05/24/19 01:14 01:26 01:40 Temperature Pulse Rate 92 H 90 76 Respiratory Rate Blood Pressure 132/96 146/84 Blood Pressure [Left] O2 Sat by Pulse 97 Oximetry 05/24/19 05/24/19 05/24/19 01:45 01:50 01:55 Temperature Pulse Rate 84 90 92 H Respiratory Rate Blood Pressure 136/79 138/80 136/79 Blood Pressure [Left] O2 Sat by Pulse Oximetry 05/24/19 05/24/19 05/24/19 02:00 02:05 02:10 Temperature Pulse Rate 85 86 88 Respiratory Rate Blood Pressure 148/93 142/90 146/92 Blood Pressure [Left] O2 Sat by Pulse Oximetry 05/24/19 05/24/19 05/24/19 02:15 02:20 02:25 Temperature Pulse Rate 84 82 78 Respiratory Rate Blood Pressure 143/89 145/93 148/93 Blood Pressure [Left] O2 Sat by Pulse Oximetry 05/24/19 05/24/19 05/24/19 02:30 02:35 02:40 Temperature Pulse Rate 83 81 90 Respiratory Rate Blood Pressure 141/88 131/84 135/84 Blood Pressure [Left] O2 Sat by Pulse Oximetry 05/24/19 05/24/19 05/24/19 02:46 02:50 02:55 Temperature 98.5 F Pulse Rate 77 75 72 Respiratory 18 Rate Blood Pressure 140/87 143/83 138/82 Blood Pressure 138/82 [Left] O2 Sat by Pulse Oximetry 05/24/19 05/24/19 05/24/19 03:00 03:05 03:11 Temperature Pulse Rate 76 80 76 Respiratory Rate Blood Pressure 130/80 140/78 154/81 Blood Pressure [Left] O2 Sat by Pulse Oximetry 05/24/19 05/24/19 05/24/19 03:15 03:21 03:25 Temperature Pulse Rate 81 105 H 82 Respiratory Rate Blood Pressure 117/69 148/91 126/73 Blood Pressure [Left] O2 Sat by Pulse Oximetry 05/24/19 05/24/19 05/24/19 03:30 03:35 03:40 Temperature Pulse Rate 83 86 81 Respiratory Rate Blood Pressure 115/66 115/66 123/68 Blood Pressure [Left] O2 Sat by Pulse Oximetry 05/24/19 05/24/19 05/24/19 03:45 03:50 03:55 Temperature Pulse Rate 86 93 H 86 Respiratory Rate Blood Pressure 124/70 144/87 125/74 Blood Pressure [Left] O2 Sat by Pulse Oximetry 05/24/19 05/24/19 05/24/19 04:00 04:05 04:10 Temperature Pulse Rate 90 93 H 95 H Respiratory Rate Blood Pressure 128/79 124/78 128/80 Blood Pressure [Left] O2 Sat by Pulse Oximetry 05/24/19 05/24/19 05/24/19 04:15 04:20 04:26 Temperature Pulse Rate 94 H 89 88 Respiratory Rate Blood Pressure 127/85 123/79 141/83 Blood Pressure [Left] O2 Sat by Pulse Oximetry 05/24/19 05/24/19 05/24/19 04:30 04:35 04:46 Temperature Pulse Rate 90 100 H Respiratory Rate Blood Pressure 124/73 133/86 Blood Pressure [Left] O2 Sat by Pulse 82 L Oximetry 05/24/19 05/24/19 05/24/19 04:47 04:51 04:56 Temperature Pulse Rate 96 H 91 H Respiratory Rate Blood Pressure Blood Pressure [Left] O2 Sat by Pulse 83 L 97 97 Oximetry 05/24/19 05/24/19 05/24/19 05:01 05:06 05:11 Temperature Pulse Rate 90 88 86 Respiratory Rate Blood Pressure Blood Pressure [Left] O2 Sat by Pulse 97 97 97 Oximetry 05/24/19 05/24/19 05/24/19 05:16 05:21 05:26 Temperature Pulse Rate 88 88 88 Respiratory Rate Blood Pressure Blood Pressure [Left] O2 Sat by Pulse 97 98 95 Oximetry 05/24/19 05/24/19 05/24/19 05:30 05:31 05:35 Temperature Pulse Rate 86 89 92 H Respiratory Rate Blood Pressure 143/98 Blood Pressure [Left] O2 Sat by Pulse 94 99 Oximetry 05/24/19 05/24/19 05/24/19 05:36 05:39 05:41 Temperature Pulse Rate 95 H 89 86 Respiratory Rate Blood Pressure Blood Pressure [Left] O2 Sat by Pulse 99 90 97 Oximetry 05/24/19 05/24/19 05/24/19 05:46 05:47 05:51 Temperature Pulse Rate 89 85 89 Respiratory Rate Blood Pressure Blood Pressure [Left] O2 Sat by Pulse 96 89 97 Oximetry 05/24/19 05/24/19 05/24/19 05:56 06:01 06:06 Temperature Pulse Rate 90 90 95 H Respiratory Rate Blood Pressure 154/93 Blood Pressure [Left] O2 Sat by Pulse 98 98 97 Oximetry 05/24/19 05/24/19 05/24/19 06:11 06:16 06:21 Temperature Pulse Rate 87 85 85 Respiratory Rate Blood Pressure 138/86 Blood Pressure [Left] O2 Sat by Pulse 97 97 97 Oximetry 05/24/19 05/24/19 05/24/19 06:26 06:31 06:36 Temperature Pulse Rate 85 86 85 Respiratory Rate Blood Pressure 133/85 Blood Pressure [Left] O2 Sat by Pulse 96 96 96 Oximetry 05/24/19 05/24/19 05/24/19 06:41 06:46 06:51 Temperature Pulse Rate 86 92 H 85 Respiratory Rate Blood Pressure 131/81 Blood Pressure [Left] O2 Sat by Pulse 96 96 96 Oximetry 05/24/19 05/24/19 05/24/19 06:56 07:01 07:06 Temperature Pulse Rate 84 84 84 Respiratory Rate Blood Pressure 134/82 Blood Pressure [Left] O2 Sat by Pulse 96 96 96 Oximetry 05/24/19 05/24/19 05/24/19 07:11 07:16 07:21 Temperature Pulse Rate 84 90 86 Respiratory Rate Blood Pressure 138/79 Blood Pressure [Left] O2 Sat by Pulse 96 96 96 Oximetry 05/24/19 05/24/19 05/24/19 07:26 07:31 07:36 Temperature Pulse Rate 88 85 84 Respiratory Rate Blood Pressure 125/74 Blood Pressure [Left] O2 Sat by Pulse 96 97 96 Oximetry 05/24/19 05/24/19 05/24/19 07:41 07:46 07:50 Temperature Pulse Rate 86 83 85 Respiratory Rate Blood Pressure 130/81 Blood Pressure [Left] O2 Sat by Pulse 97 97 93 Oximetry 05/24/19 05/24/19 05/24/19 07:51 07:56 08:01 Temperature Pulse Rate 92 H 85 84 Respiratory Rate Blood Pressure 125/71 Blood Pressure [Left] O2 Sat by Pulse 97 98 98 Oximetry 05/24/19 05/24/19 05/24/19 08:06 08:11 08:16 Temperature Pulse Rate 82 85 85 Respiratory Rate Blood Pressure 127/77 Blood Pressure [Left] O2 Sat by Pulse 97 98 97 Oximetry 05/24/19 05/24/19 05/24/19 08:21 08:26 08:31 Temperature Pulse Rate 83 84 86 Respiratory Rate Blood Pressure 125/74 Blood Pressure [Left] O2 Sat by Pulse 97 97 96 Oximetry 05/24/19 05/24/19 05/24/19 08:35 08:36 08:41 Temperature 98.3 F Pulse Rate 86 83 Respiratory 18 Rate Blood Pressure 139/82 Blood Pressure [Left] O2 Sat by Pulse 96 98 Oximetry 05/24/19 05/24/19 05/24/19 08:46 08:51 08:56 Temperature Pulse Rate 82 83 83 Respiratory Rate Blood Pressure 127/81 Blood Pressure [Left] O2 Sat by Pulse 97 97 97 Oximetry 05/24/19 05/24/19 05/24/19 09:01 09:06 09:11 Temperature Pulse Rate 87 82 85 Respiratory Rate Blood Pressure 121/79 Blood Pressure [Left] O2 Sat by Pulse 97 98 97 Oximetry 05/24/19 05/24/19 05/24/19 09:16 09:21 09:26 Temperature Pulse Rate 81 79 78 Respiratory Rate Blood Pressure 138/84 Blood Pressure [Left] O2 Sat by Pulse 97 98 98 Oximetry 05/24/19 05/24/19 05/24/19 09:31 09:36 09:41 Temperature Pulse Rate 82 80 82 Respiratory Rate Blood Pressure 124/76 Blood Pressure [Left] O2 Sat by Pulse 98 98 98 Oximetry 02/15/20 02/15/20 02/15/20 09:46 09:51 09:56 Temperature Pulse Rate 81 82 85 Respiratory Rate Blood Pressure 134/83 Blood Pressure [Left] O2 Sat by Pulse 97 98 97 Oximetry 05/24/19 05/24/19 05/24/19 10:01 10:03 10:06 Temperature Pulse Rate 88 81 96 H Respiratory Rate Blood Pressure 138/86 Blood Pressure [Left] O2 Sat by Pulse 98 98 Oximetry 05/24/19 05/24/19 05/24/19 10:11 10:16 10:21 Temperature Pulse Rate 88 85 86 Respiratory Rate Blood Pressure Blood Pressure [Left] O2 Sat by Pulse 98 98 97 Oximetry 05/24/19 05/24/19 10:26 10:31 Temperature Pulse Rate 84 85 Respiratory Rate Blood Pressure Blood Pressure [Left] O2 Sat by Pulse 99 98 Oximetry - Exam Cardiovascular: Regular rate Lungs: Clear to auscultation Abdomen: Present: normal appearance FHR: category 2 (FHT 120basline, minimal variability, no variables) Uterine Contraction Monitor Mode: External Cervical Dilatation: 1 Cervical Effacement Percentage: 25 station: 0 Uterine Contraction Frequency (min): irregular Uterine Contraction Pattern: Irregular Uterine Contraction Intensity: Mild Extremities: normal Deep Tendon Reflex Grade: Hyperactive,very brisk +4 (absent Babinski) - Labs Labs: Abnormal Labs 05/24/19 05/24/19 05/24/19 01:15 01:15 07:48 [place] % (Auto) 8.9 H Uric Acid 11.3 H Magnesium 5.90 H Lactate Dehydrogenase 265 H Laboratory Results - last 24 hr 05/24/19 05/24/19 05/24/19 01:14 01:15 01:15 WBC 8.7 RBC 4.07 Hgb 12.6 Hct 37.9 MCV 93 MCH 31 MCHC 33 RDW 13.3 Plt Count 255 Lymph % (Auto) 19.0 [place] % (Auto) 8.9 H Eos % (Auto) 1.8 Baso % (Auto) 0.9 Lymph # 1.6 [place] # 0.8 Eos # 0.2 Baso # 0.1 Add Manual Diff Complete Seg Neutrophils % 69.4 Seg Neutrophils # 6.0 Creatinine 1.0 Estimated GFR > 60 Uric Acid 11.3 H Magnesium AST 26 ALT 23 Lactate Dehydrogenase 265 H Hep Bs Antigen Hepatitis C Antibody HIV 1&2 Antibody Rapid Non react HIV P24 Antigen Non react Rubella IgG Antibody Blood Type A POSITIVE Antibody Screen Negative 05/24/19 05/24/19 05/24/19 01:15 01:15 07:48 WBC RBC Hgb Hct MCV MCH MCHC RDW Plt Count Lymph % (Auto) [place] % (Auto) Eos % (Auto) Baso % (Auto) Lymph # [place] # Eos # Baso # Add Manual Diff Seg Neutrophils % Seg Neutrophils # Creatinine Estimated GFR Uric Acid Magnesium 5.90 H AST ALT Lactate Dehydrogenase Hep Bs Antigen Non-reactive Hepatitis C Antibody Non-reactive HIV 1&2 Antibody Rapid HIV P24 Antigen Rubella IgG Antibody Immune Blood Type Antibody Screen
[2019-05-24] MEDS ORDERED: NALOXONE 2 MG/2 ML INJ IV PRN (11:25)
--- NOTE | 2019-05-24 11:28 | Anesthesia Consultation ---
Anesthesia Consult and Med Hx Date of service: 05/24/19 - Airway Anesthetic Teeth Evaluation: Good ROM Head & Neck: Adequate Mental/Hyoid Distance: Adequate Mallampati Class: Class II Intubation Access Assessment: Probably Good - Pulmonary Exam CTA: Yes - Cardiac Exam Cardiac Exam: RRR - Pre-Operative Health Status ASA Pre-Surgery Classification: ASA3 Proposed Anesthetic Plan: Epidural - Pulmonary Hx Smoking: No Hx Asthma: No Hx Respiratory Symptoms: No SOB: No COPD: No Home Oxygen Therapy: No Hx Pneumonia: No Hx Sleep Apnea: No - Cardiovascular System Hx Hypertension: Yes Hx Coronary Artery Disease: No Hx Heart Attack/AMI: No Hx Angina: No Hx Percutaneous Transluminal Coronary Angioplasty (PTCA): No Hx Cardia Arrhythmia: No Hx Pacemaker: No Hx Internal Defibrillator: No Hx Valvular Heart Disease: No Hx Heart Murmur: No Hx Peripheral Vascular Disease: No - Central Nervous System Hx Neuromuscular Disorder: No Hx Seizures: Yes (eclampsia 05/23/2019) CVA: No Hx Back Pain: No Hx Psychiatric Problems: No - Gastrointestinal Hx Ulcer: No Hx Gastroesophageal Reflux Disease: Yes - Endocrine Hx Renal Disease: No Hx End Stage Renal Disease: No Hx Cirrhosis: No Hx Liver Disease: No Hx Insulin Dependent Diabetes: No Hx Non-Insulin Dependent Diabetes: No Hx Thyroid Disease: No Hx Hypothyroidism: No Hx Hyperthyroidism: No - Hematic Hx Anemia: No Hx Sickle Cell Disease: No - Other Systems Hx Alcohol Use: No Hx Substance Use: No Hx Cancer: No Hx Obesity: No
[2019-05-24] MEDS ORDERED: fentaNYL-BUPIV 2 MCG/ML-0.125% 200 MCG/100 ML BAG EPIDURAL SCH (12:00)
[2019-05-24] MEDS ORDERED: DEXMEDETOMIDINE 200 MCG/2 ML VIAL IV ONE (12:08)
--- NOTE | 2019-05-24 13:09 | Progress Note ---
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 Valeri Tamez MD Objective - Vital Signs Vital Signs: Vital Signs - 12hr 05/24/19 05/24/19 05/24/19 01:09 01:13 01:14 Temperature Pulse Rate 82 86 92 H Respiratory Rate Blood Pressure 157/103 Blood Pressure [Left] O2 Sat by Pulse 96 97 Oximetry 05/24/19 05/24/19 05/24/19 01:26 01:40 01:45 Temperature Pulse Rate 90 76 84 Respiratory Rate Blood Pressure 132/96 146/84 136/79 Blood Pressure [Left] O2 Sat by Pulse Oximetry 05/24/19 05/24/19 05/24/19 01:50 01:55 02:00 Temperature Pulse Rate 90 92 H 85 Respiratory Rate Blood Pressure 138/80 136/79 148/93 Blood Pressure [Left] O2 Sat by Pulse Oximetry 05/24/19 05/24/19 05/24/19 02:05 02:10 02:15 Temperature Pulse Rate 86 88 84 Respiratory Rate Blood Pressure 142/90 146/92 143/89 Blood Pressure [Left] O2 Sat by Pulse Oximetry 05/24/19 05/24/19 05/24/19 02:20 02:25 02:30 Temperature Pulse Rate 82 78 83 Respiratory Rate Blood Pressure 145/93 148/93 141/88 Blood Pressure [Left] O2 Sat by Pulse Oximetry 05/24/19 05/24/19 05/24/19 02:35 02:40 02:46 Temperature Pulse Rate 81 90 77 Respiratory Rate Blood Pressure 131/84 135/84 140/87 Blood Pressure [Left] O2 Sat by Pulse Oximetry 05/24/19 05/24/19 05/24/19 02:50 02:55 03:00 Temperature 98.5 F Pulse Rate 75 72 76 Respiratory 18 Rate Blood Pressure 143/83 138/82 130/80 Blood Pressure 138/82 [Left] O2 Sat by Pulse Oximetry 05/24/19 05/24/19 05/24/19 03:05 03:11 03:15 Temperature Pulse Rate 80 76 81 Respiratory Rate Blood Pressure 140/78 154/81 117/69 Blood Pressure [Left] O2 Sat by Pulse Oximetry 05/24/19 05/24/19 05/24/19 03:21 03:25 03:30 Temperature Pulse Rate 105 H 82 83 Respiratory Rate Blood Pressure 148/91 126/73 115/66 Blood Pressure [Left] O2 Sat by Pulse Oximetry 05/24/19 05/24/19 05/24/19 03:35 03:40 03:45 Temperature Pulse Rate 86 81 86 Respiratory Rate Blood Pressure 115/66 123/68 124/70 Blood Pressure [Left] O2 Sat by Pulse Oximetry 05/24/19 05/24/19 05/24/19 03:50 03:55 04:00 Temperature Pulse Rate 93 H 86 90 Respiratory Rate Blood Pressure 144/87 125/74 128/79 Blood Pressure [Left] O2 Sat by Pulse Oximetry 05/24/19 05/24/19 05/24/19 04:05 04:10 04:15 Temperature Pulse Rate 93 H 95 H 94 H Respiratory Rate Blood Pressure 124/78 128/80 127/85 Blood Pressure [Left] O2 Sat by Pulse Oximetry 05/24/19 05/24/19 05/24/19 04:20 04:26 04:30 Temperature Pulse Rate 89 88 90 Respiratory Rate Blood Pressure 123/79 141/83 124/73 Blood Pressure [Left] O2 Sat by Pulse Oximetry 05/24/19 05/24/19 05/24/19 04:35 04:46 04:47 Temperature Pulse Rate 100 H Respiratory Rate Blood Pressure 133/86 Blood Pressure [Left] O2 Sat by Pulse 82 L 83 L Oximetry 05/24/19 05/24/19 05/24/19 04:51 04:56 05:01 Temperature Pulse Rate 96 H 91 H 90 Respiratory Rate Blood Pressure Blood Pressure [Left] O2 Sat by Pulse 97 97 97 Oximetry 05/24/19 05/24/19 05/24/19 05:06 05:11 05:16 Temperature Pulse Rate 88 86 88 Respiratory Rate Blood Pressure Blood Pressure [Left] O2 Sat by Pulse 97 97 97 Oximetry 05/24/19 05/24/19 05/24/19 05:21 05:26 05:30 Temperature Pulse Rate 88 88 86 Respiratory Rate Blood Pressure Blood Pressure [Left] O2 Sat by Pulse 98 95 94 Oximetry 05/24/19 05/24/19 05/24/19 05:31 05:35 05:36 Temperature Pulse Rate 89 92 H 95 H Respiratory Rate Blood Pressure 143/98 Blood Pressure [Left] O2 Sat by Pulse 99 99 Oximetry 05/24/19 05/24/19 05/24/19 05:39 05:41 05:46 Temperature Pulse Rate 89 86 89 Respiratory Rate Blood Pressure Blood Pressure [Left] O2 Sat by Pulse 90 97 96 Oximetry 05/24/19 05/24/19 05/24/19 05:47 05:51 05:56 Temperature Pulse Rate 85 89 90 Respiratory Rate Blood Pressure 154/93 Blood Pressure [Left] O2 Sat by Pulse 89 97 98 Oximetry 05/24/19 05/24/19 05/24/19 06:01 06:06 06:11 Temperature Pulse Rate 90 95 H 87 Respiratory Rate Blood Pressure 138/86 Blood Pressure [Left] O2 Sat by Pulse 98 97 97 Oximetry 05/24/19 05/24/19 05/24/19 06:16 06:21 06:26 Temperature Pulse Rate 85 85 85 Respiratory Rate Blood Pressure 133/85 Blood Pressure [Left] O2 Sat by Pulse 97 97 96 Oximetry 05/24/19 05/24/19 05/24/19 06:31 06:36 06:41 Temperature Pulse Rate 86 85 86 Respiratory Rate Blood Pressure 131/81 Blood Pressure [Left] O2 Sat by Pulse 96 96 96 Oximetry 05/24/19 05/24/19 05/24/19 06:46 06:51 06:56 Temperature Pulse Rate 92 H 85 84 Respiratory Rate Blood Pressure 134/82 Blood Pressure [Left] O2 Sat by Pulse 96 96 96 Oximetry 05/24/19 05/24/19 05/24/19 07:01 07:06 07:11 Temperature Pulse Rate 84 84 84 Respiratory Rate Blood Pressure 138/79 Blood Pressure [Left] O2 Sat by Pulse 96 96 96 Oximetry 05/24/19 05/24/19 05/24/19 07:16 07:21 07:26 Temperature Pulse Rate 90 86 88 Respiratory Rate Blood Pressure 125/74 Blood Pressure [Left] O2 Sat by Pulse 96 96 96 Oximetry 05/24/19 05/24/19 05/24/19 07:31 07:36 07:41 Temperature Pulse Rate 85 84 86 Respiratory Rate Blood Pressure 130/81 Blood Pressure [Left] O2 Sat by Pulse 97 96 97 Oximetry 05/24/19 05/24/19 05/24/19 07:46 07:50 07:51 Temperature Pulse Rate 83 85 92 H Respiratory Rate Blood Pressure Blood Pressure [Left] O2 Sat by Pulse 97 93 97 Oximetry 05/24/19 05/24/19 05/24/19 07:56 08:01 08:06 Temperature Pulse Rate 85 84 82 Respiratory Rate Blood Pressure 125/71 Blood Pressure [Left] O2 Sat by Pulse 98 98 97 Oximetry 05/24/19 05/24/19 05/24/19 08:11 08:16 08:21 Temperature Pulse Rate 85 85 83 Respiratory Rate Blood Pressure 127/77 Blood Pressure [Left] O2 Sat by Pulse 98 97 97 Oximetry 05/24/19 05/24/19 05/24/19 08:26 08:31 08:35 Temperature 98.3 F Pulse Rate 84 86 Respiratory 18 Rate Blood Pressure 125/74 Blood Pressure [Left] O2 Sat by Pulse 97 96 Oximetry 05/24/19 05/24/19 05/24/19 08:36 08:41 08:46 Temperature Pulse Rate 86 83 82 Respiratory Rate Blood Pressure 139/82 Blood Pressure [Left] O2 Sat by Pulse 96 98 97 Oximetry 05/24/19 05/24/19 05/24/19 08:51 08:56 09:01 Temperature Pulse Rate 83 83 87 Respiratory Rate Blood Pressure 127/81 Blood Pressure [Left] O2 Sat by Pulse 97 97 97 Oximetry 05/24/19 05/24/19 05/24/19 09:06 09:11 09:16 Temperature Pulse Rate 82 85 81 Respiratory Rate Blood Pressure 121/79 Blood Pressure [Left] O2 Sat by Pulse 98 97 97 Oximetry 05/24/19 05/24/19 05/24/19 09:21 09:26 09:31 Temperature Pulse Rate 79 78 82 Respiratory Rate Blood Pressure 138/84 Blood Pressure [Left] O2 Sat by Pulse 98 98 98 Oximetry 05/24/19 05/24/19 05/24/19 09:36 09:41 09:46 Temperature Pulse Rate 80 82 81 Respiratory Rate Blood Pressure 124/76 Blood Pressure [Left] O2 Sat by Pulse 98 98 97 Oximetry 05/24/19 05/24/19 05/24/19 09:51 09:56 10:01 Temperature Pulse Rate 82 85 88 Respiratory Rate Blood Pressure 134/83 Blood Pressure [Left] O2 Sat by Pulse 98 97 98 Oximetry 05/24/19 05/24/19 05/24/19 10:03 10:06 10:11 Temperature Pulse Rate 81 96 H 88 Respiratory Rate Blood Pressure 138/86 Blood Pressure [Left] O2 Sat by Pulse 98 98 Oximetry 05/24/19 05/24/19 05/24/19 10:16 10:21 10:26 Temperature Pulse Rate 85 86 84 Respiratory Rate Blood Pressure Blood Pressure [Left] O2 Sat by Pulse 98 97 99 Oximetry 05/24/19 05/24/19 05/24/19 10:31 10:36 10:41 Temperature Pulse Rate 85 86 84 Respiratory Rate Blood Pressure Blood Pressure [Left] O2 Sat by Pulse 98 98 97 Oximetry 05/24/19 05/24/19 05/24/19 10:46 10:51 10:56 Temperature Pulse Rate 85 85 85 Respiratory Rate Blood Pressure Blood Pressure [Left] O2 Sat by Pulse 97 97 97 Oximetry 05/24/19 05/24/19 05/24/19 11:01 11:06 11:07 Temperature Pulse Rate 89 93 H 82 Respiratory Rate Blood Pressure 149/96 Blood Pressure [Left] O2 Sat by Pulse 98 98 93 Oximetry 05/24/19 05/24/19 05/24/19 11:11 11:16 11:21 Temperature Pulse Rate 83 84 82 Respiratory Rate Blood Pressure Blood Pressure [Left] O2 Sat by Pulse 96 96 97 Oximetry 05/24/19 05/24/19 05/24/19 11:26 11:31 11:36 Temperature Pulse Rate 80 81 91 H Respiratory Rate Blood Pressure Blood Pressure [Left] O2 Sat by Pulse 97 96 97 Oximetry 05/24/19 05/24/19 05/24/19 11:41 11:46 11:51 Temperature Pulse Rate 89 86 87 Respiratory Rate Blood Pressure Blood Pressure [Left] O2 Sat by Pulse 99 99 99 Oximetry 05/24/19 05/24/19 05/24/19 11:56 12:01 12:06 Temperature Pulse Rate 87 86 86 Respiratory Rate Blood Pressure 132/85 Blood Pressure [Left] O2 Sat by Pulse 99 98 99 Oximetry 05/24/19 05/24/19 05/24/19 12:11 12:16 12:21 Temperature Pulse Rate 89 80 81 Respiratory Rate Blood Pressure Blood Pressure [Left] O2 Sat by Pulse 98 98 99 Oximetry 05/24/19 05/24/19 05/24/19 12:26 12:31 12:36 Temperature Pulse Rate 85 85 81 Respiratory Rate Blood Pressure 139/89 Blood Pressure [Left] O2 Sat by Pulse 99 98 Oximetry 05/24/19 05/24/19 05/24/19 12:37 12:40 12:42 Temperature Pulse Rate 79 75 78 Respiratory Rate Blood Pressure 148/93 133/90 135/92 Blood Pressure [Left] O2 Sat by Pulse 99 97 Oximetry 05/24/19 05/24/19 05/24/19 12:44 12:46 12:47 Temperature Pulse Rate 73 81 76 Respiratory Rate Blood Pressure 143/94 130/86 Blood Pressure [Left] O2 Sat by Pulse 98 Oximetry 05/24/19 05/24/19 05/24/19 12:48 12:52 12:54 Temperature Pulse Rate 75 78 76 Respiratory Rate Blood Pressure 120/67 133/87 137/87 Blood Pressure [Left] O2 Sat by Pulse 98 Oximetry 05/24/19 05/24/19 05/24/19 12:56 12:57 12:58 Temperature Pulse Rate 76 81 75 Respiratory Rate Blood Pressure 133/87 135/89 Blood Pressure [Left] O2 Sat by Pulse 99 Oximetry 05/24/19 05/24/19 05/24/19 13:00 13:02 13:04 Temperature Pulse Rate 77 79 75 Respiratory Rate Blood Pressure 134/89 129/87 129/86 Blood Pressure [Left] O2 Sat by Pulse 99 Oximetry 05/24/19 13:06 Temperature Pulse Rate 77 Respiratory Rate Blood Pressure 130/90 Blood Pressure [Left] O2 Sat by Pulse Oximetry - Labs Labs: Abnormal Labs 05/24/19 05/24/19 05/24/19 01:15 01:15 07:48 [place] % (Auto) 8.9 H Uric Acid 11.3 H Magnesium 5.90 H Lactate Dehydrogenase 265 H Laboratory Results - last 24 hr 05/24/19 05/24/19 05/24/19 01:14 01:15 01:15 WBC 8.7 RBC 4.07 Hgb 12.6 Hct 37.9 MCV 93 MCH 31 MCHC 33 RDW 13.3 Plt Count 255 Lymph % (Auto) 19.0 [place] % (Auto) 8.9 H Eos % (Auto) 1.8 Baso % (Auto) 0.9 Lymph # 1.6 [place] # 0.8 Eos # 0.2 Baso # 0.1 Add Manual Diff Complete Seg Neutrophils % 69.4 Seg Neutrophils # 6.0 Creatinine 1.0 Estimated GFR > 60 Uric Acid 11.3 H Magnesium AST 26 ALT 23 Lactate Dehydrogenase 265 H Syphilis IgG Antibody Hep Bs Antigen Hepatitis C Antibody HIV 1&2 Antibody Rapid Non react HIV P24 Antigen Non react Rubella IgG Antibody Blood Type A POSITIVE Antibody Screen Negative 05/24/19 05/24/19 05/24/19 01:15 01:15 07:48 WBC RBC Hgb Hct MCV MCH MCHC RDW Plt Count Lymph % (Auto) [place] % (Auto) Eos % (Auto) Baso % (Auto) Lymph # [place] # Eos # Baso # Add Manual Diff Seg Neutrophils % Seg Neutrophils # Creatinine Estimated GFR Uric Acid Magnesium 5.90 H AST ALT Lactate Dehydrogenase Syphilis IgG Antibody Hep Bs Antigen Non-reactive Hepatitis C Antibody Non-reactive HIV 1&2 Antibody Rapid HIV P24 Antigen Rubella IgG Antibody Immune Blood Type Antibody Screen 05/24/19 07:48 WBC RBC Hgb Hct MCV MCH MCHC RDW Plt Count Lymph % (Auto) [place] % (Auto) Eos % (Auto) Baso % (Auto) Lymph # [place] # Eos # Baso # Add Manual Diff Seg Neutrophils % Seg Neutrophils # Creatinine Estimated GFR Uric Acid Magnesium AST ALT Lactate Dehydrogenase Syphilis IgG Antibody Non-reactive Hep Bs Antigen Hepatitis C Antibody HIV 1&2 Antibody Rapid HIV P24 Antigen Rubella IgG Antibody Blood Type Antibody Screen
[2019-05-24] MEDS ORDERED: FAMOTIDINE 20 MG/2 ML INJ IV ONE ×2 (13:10→14:00)
[2019-05-24] MEDS ORDERED: METOCLOPRAMIDE 10 MG/2 ML INJ ONE (13:10)
[2019-05-24] MEDS ORDERED: ceFAZolin/Water 2 GM/20 ML 2 GM/20 ML SYRINGE IV ONE (13:10)
[2019-05-24] MEDS ORDERED: LIDOCAINE MPF (2%) 20 MG/1 ML VIAL 5 ML ONE (13:49)
[2019-05-24] MEDS ORDERED: SODIUM CHLORIDE 0.9% IRR 1,500 ML BOTTLE IR ONE (13:50)
[2019-05-24] MEDS ORDERED: WATER FOR IRRIG STERILE 1,500 ML BOTTLE IR ONE (13:50)
[2019-05-24] MEDS ORDERED: BICITRA ORAL LIQD 30ML PO ONE (14:00)
[2019-05-24] MEDS ORDERED: LACTATED RINGERS 1,000 ML IV SCH (14:00)
[2019-05-24] MEDS ORDERED: METOCLOPRAMIDE 10 MG/2 ML INJ IV ONE (14:00)
[2019-05-24] MEDS ORDERED: ceFAZolin/Water 2 GM/20 ML 2 GM/20 ML SYRINGE IV NR (14:00)
[2019-05-24] MEDS ORDERED: LANOLIN/ZINC/DIMETHICONE (LANSINOH) 7 GM TP PRN (14:29)
[2019-05-24] MEDS ORDERED: NALOXONE 0.4 MG/1 ML INJ IV PRN ×3 (14:29→15:22)
[2019-05-24] MEDS ORDERED: WITCH HAZEL/ GLYCERIN PAD TP PRN (14:29)
[2019-05-24] MEDS ORDERED: MORPHINE 4 MG/1 ML INJ IV PRN (14:33)
--- NOTE | 2019-05-24 14:38 | Procedure Note ---
OB Delivery Note - Delivery Date of Delivery: 05/24/19 Surgeon: MARISABEL MONTGOMERY Estimated blood loss: other (600ml) - Section Preop diagnosis: nonreassuring FHR tracing Postop diagnosis: same section procedure: primary low transverse Disposition: PACU Complications: none Narrative: Preoperative diagnosis: IUP at 30 weeks, non-reassuring heart tracing, eclampsia Postoperative diagnosis: same Procedure: Primary low transverse section via pfannenstiel incision Surgeon: Dr Marisabel Montgomery Assist: scrub Anesthesia: Epidural Complications: none EBL 600ml IV Fluids: 500ml Urine output: adequate and clear, 300ml Findings: viable male(weight and not available. Normal uterus tubes and ovaries bilaterally. Patient was consented in 2001 for urgent primary section for non reassuring heart tracing after discussion with MFM. Patient taken to the OR where excellent epidural anesthesia was confirmed. Patient placed in the dorsal supine position with a leftward tilt, prepped and draped in a sterile fashion. A time out was verified. A pfannenstiel skin incision was made and taken down to the underlying fascia. The fascial incision was extended laterally sharply with a scalpel . The abdomen was entered in the midline bluntly and a bladder blade inserted. The uterine incision was made sharply and extended laterally digitally. The fetus was delivered en-caul atraumatically. Tight nuchal cord noted at delivery. Cord was clamped and cut and baby handed to waiting NICU staff. Cord gasses and cord blood obtained. An intact placenta with three vessel cord delivered manually. The uterus was exteriorized and cleared of all clots and debris. The uterine incision was closed in twolayers of 0-vicryl with excellent hemostasis. Firm fundus. The uterus was placed back into the abdomen and a second look at the uterine incision assured hemostasis. The abdomen was irrigated with warm normal saline. The peritoneum closed with 3-0 vicryl and the rectus muscles approximated with 3-0 vicryl. The fascia closed with 0-vicryl in the usual fashion. The subcuticular structures closed with interrupted 0- vicryl in the usual fashion. The skin closed was closed with jerson. A pressure dressing applied. All sponge,needle and instrument counts correctx2. No complications. EBL 600ml Avel GUZMÁN
[2019-05-24] MEDS ORDERED: HYDROmorphone 1 MG/1 ML INJ IV PRN (15:22)
--- NOTE | 2019-05-24 15:27 | Anesthesia Day of Surgery ---
Anesthesia Day of Surgery - Day of Surgery Patient Examined: Yes Patient H&P Reviewed: Yes Patient is NPO: Yes Beta Blockers: No Cardiac Clearance: No Pulmonary Clearance: No Geremias's Test: N/A
[2019-05-24] MEDS: MAGNESIUM SULFATE 40GM/1000ML 40 GM/1,000 ML BAG IV SCH (15:30)
[2019-05-24] MEDS: MORPHINE 2 MG/1 ML INJ IV PRN ×2 (17:02→21:03)
--- NOTE | 2019-05-24 17:42 | Event Note ---
Date: 05/24/19 Hospitalist service was consulted last night for preeclamptic seizure. I discussed with ENVIRONMENTAL MANAGEMENT SPECIALIST who stated that patient had delivered by . No new seizure episodes. No need for medical consult at this point. Call us if needed. Thank you
[2019-05-24] MEDS: HYDROcodone/ACETAMINOPHEN 5-325 MG TAB PO PRN (19:45)
[2019-05-24] MEDS: IBUPROFEN 800 MG TAB PO PRN (20:32)
[2019-05-24] MEDS: LACTATED RINGERS 1,000 ML IV SCH (21:07)
[2019-05-25 02:59] LABS: Hematocrit 30.8 % (30.3-42.9); Hemoglobin 10.6 gm/dl (10.1-14.3)
[2019-05-25] MEDS: MORPHINE 2 MG/1 ML INJ IV PRN (05:04)
[2019-05-25] MEDS: LACTATED RINGERS 1,000 ML IV SCH (06:04)
[2019-05-25] MEDS: MAGNESIUM SULFATE 40GM/1000ML 40 GM/1,000 ML BAG IV SCH (07:01)
[2019-05-25] MEDS: IBUPROFEN 800 MG TAB PO PRN ×2 (08:29→15:36)
[2019-05-25] MEDS: HYDROcodone/ACETAMINOPHEN 5-325 MG TAB PO PRN ×3 (08:29→22:32)
--- NOTE | 2019-05-25 12:18 | Progress Note ---
Assessment and Plan Eclampsia-resolved Continue routine PP care [id number] hours PP stable from a BP and surgical standpoint continue close monitoring Valeri Romo MD Subjective - Subjective Date of service: 05/25/19 Interval history: Patient sitting up doing well. On Magnesium Sulfate 1gm/hr AAOx3 Tolerating general diet, normal urine output Patient reports: appetite normal Nye: doing well Objective - Vital Signs Latest vital signs: Vital Signs Temp Pulse Resp BP Pulse Ox 05/25/19 12:08 68 98 05/25/19 12:03 70 99 05/25/19 11:58 79 100 05/25/19 11:53 74 98 05/25/19 11:48 74 98 05/25/19 11:43 73 97 05/25/19 11:38 71 98 05/25/19 11:33 73 100 05/25/19 11:28 71 98 05/25/19 11:23 88 98 05/25/19 11:18 68 98 05/25/19 11:13 74 100 05/25/19 11:08 82 98 05/25/19 11:03 69 97 05/25/19 10:58 72 98 05/25/19 10:53 81 97 05/25/19 10:48 68 97 05/25/19 10:43 70 97 05/25/19 10:40 74 127/83 05/25/19 10:38 70 98 05/25/19 10:33 69 99 05/25/19 10:28 72 98 05/25/19 10:23 77 99 05/25/19 10:18 69 98 05/25/19 10:13 73 99 05/25/19 10:08 83 99 05/25/19 10:03 83 99 05/25/19 09:58 79 98 05/25/19 09:53 69 98 05/25/19 09:48 76 99 05/25/19 09:43 72 98 05/25/19 09:38 79 97 05/25/19 09:33 81 99 05/25/19 09:28 77 98 05/25/19 09:23 83 98 05/25/19 09:18 73 98 05/25/19 09:13 75 98 05/25/19 09:08 72 144/70 95 05/25/19 09:03 66 98 05/25/19 08:58 82 99 05/25/19 08:53 76 99 05/25/19 08:48 79 97 05/25/19 08:43 72 97 05/25/19 08:38 70 100 05/25/19 08:33 80 97 05/25/19 08:28 71 98 05/25/19 08:23 78 99 05/25/19 08:18 73 99 05/25/19 08:13 72 97 05/25/19 08:08 75 98 05/25/19 08:03 71 99 05/25/19 07:58 78 98 05/25/19 07:53 65 97 05/25/19 07:48 86 98 05/25/19 07:43 75 100 05/25/19 07:38 67 98 05/25/19 07:33 63 99 05/25/19 07:28 64 99 05/25/19 07:23 66 98 05/25/19 07:18 69 98 05/25/19 07:13 66 99 05/25/19 07:08 63 125/78 96 05/25/19 07:03 68 99 05/25/19 06:58 73 99 05/25/19 06:53 70 98 05/25/19 06:48 61 99 05/25/19 06:43 65 99 05/25/19 06:38 76 97 05/25/19 06:33 69 128/74 98 05/25/19 06:28 64 97 05/25/19 06:23 67 97 05/25/19 06:18 72 97 05/25/19 06:13 68 99 05/25/19 06:08 71 99 05/25/19 06:03 84 99 05/25/19 05:58 65 98 05/25/19 05:53 64 99 05/25/19 05:48 65 99 05/25/19 05:43 75 98 05/25/19 05:38 77 98 05/25/19 05:33 67 98 05/25/19 05:28 64 98 05/25/19 05:23 62 98 05/25/19 05:18 64 98 05/25/19 05:13 61 98 05/25/19 05:08 96 H 133/89 96 05/25/19 05:03 82 98 02 05:00 98.3 F 16 05/25/19 04:58 64 98 05/25/19 04:53 69 98 05/25/19 04:48 62 98 05/25/19 04:43 63 98 05/25/19 04:38 82 98 05/25/19 04:33 67 98 05/25/19 04:28 82 98 05/25/19 04:23 65 98 05/25/19 04:18 65 98 05/25/19 04:13 67 98 05/25/19 04:08 71 98 05/25/19 04:03 79 97 05/25/19 03:58 70 98 05/25/19 03:53 69 97 05/25/19 03:48 69 97 05/25/19 03:43 70 97 05/25/19 03:38 69 97 05/25/19 03:33 72 97 05/25/19 03:28 74 97 05/25/19 03:23 77 97 05/25/19 03:18 70 97 05/25/19 03:13 70 97 05/25/19 03:08 64 126/76 96 05/25/19 03:03 65 97 05/25/19 02:58 66 97 05/25/19 02:53 67 97 05/25/19 02:48 73 96 05/25/19 02:43 82 98 05/25/19 02:38 76 97 05/25/19 02:33 69 97 05/25/19 02:28 69 97 05/25/19 02:23 70 97 05/25/19 02:18 68 97 05/25/19 02:13 69 98 05/25/19 02:08 74 98 05/25/19 02:03 79 97 05/25/19 01:58 69 97 05/25/19 01:53 71 97 05/25/19 01:48 71 97 05/25/19 01:43 70 98 05/25/19 01:38 68 97 05/25/19 01:33 68 97 05/25/19 01:28 73 97 05/25/19 01:23 72 97 05/25/19 01:18 68 97 05/25/19 01:13 67 97 05/25/19 01:08 73 127/81 96 05/25/19 01:03 80 98 05/25/19 00:58 72 97 05/25/19 00:53 76 97 05/25/19 00:48 70 97 05/25/19 00:43 87 97 05/25/19 00:38 74 96 05/25/19 00:33 72 97 05/25/19 00:28 73 97 05/25/19 00:23 75 97 05/25/19 00:18 77 97 05/25/19 00:13 75 97 05/25/19 00:08 78 97 05/25/19 00:03 76 97 05/24/19 23:58 80 97 05/24/19 23:53 75 97 05/24/19 23:48 91 H 98 05/24/19 23:45 98.3 F 16 05/24/19 23:43 76 97 05/24/19 23:38 79 96 05/24/19 23:33 76 97 05/24/19 23:28 79 97 05/24/19 23:23 98 H 96 05/24/19 23:18 87 96 05/24/19 23:13 80 97 05/24/19 23:09 77 122/80 94 05/24/19 23:08 77 95 05/24/19 23:03 80 98 05/24/19 22:58 75 98 05/24/19 22:53 81 97 05/24/19 22:48 95 H 98 05/24/19 22:43 84 98 05/24/19 22:38 77 97 05/24/19 22:33 77 97 05/24/19 22:28 78 97 05/24/19 22:23 86 98 05/24/19 22:18 84 98 05/24/19 22:13 73 98 05/24/19 22:08 88 97 05/24/19 22:03 79 97 05/24/19 21:58 85 98 05/24/19 21:53 81 98 05/24/19 21:48 83 144/84 98 05/24/19 21:43 81 98 05/24/19 21:38 79 97 05/24/19 21:33 83 97 05/24/19 21:28 81 98 05/24/19 21:23 83 97 05/24/19 21:18 87 98 05/24/19 21:13 85 98 05/24/19 21:08 88 98 05/24/19 21:03 84 16 97 05/24/19 21:02 81 135/81 05/24/19 20:58 88 99 05/24/19 20:53 84 98 05/24/19 20:38 82 98 05/24/19 20:33 100 H 98 05/24/19 20:28 85 97 05/24/19 20:23 82 97 05/24/19 20:18 77 97 05/24/19 20:13 79 98 05/24/19 20:08 84 98 05/24/19 20:03 85 97 05/24/19 20:01 80 144/92 05/24/19 19:58 84 98 05/24/19 19:56 86 158/105 05/24/19 19:53 85 97 05/24/19 19:48 75 156/96 05/24/19 19:45 16 05/24/19 19:30 98.9 F 16 05/24/19 19:14 83 125/78 05/24/19 18:48 91 H 119/66 05/24/19 17:48 85 135/84 05/24/19 16:49 81 150/82 05/24/19 16:00 98.0 F 72 16 142/85 100 05/24/19 15:45 79 18 138/92 100 05/24/19 15:30 70 16 138/83 98 05/24/19 15:15 78 19 115/58 98 05/24/19 15:05 65 16 126/70 98 05/24/19 15:00 64 17 123/67 98 05/24/19 14:56 98.0 F 69 15 119/63 97 05/24/19 13:28 76 137/87 05/24/19 13:27 71 100 05/24/19 13:26 69 141/86 05/24/19 13:25 82 152/81 05/24/19 13:23 80 135/99 05/24/19 13:22 85 100 05/24/19 13:20 72 126/81 05/24/19 13:18 75 136/89 05/24/19 13:17 78 99 05/24/19 13:16 81 131/77 05/24/19 13:14 85 129/88 05/24/19 13:12 73 132/91 100 05/24/19 13:10 75 130/90 05/24/19 13:08 73 141/94 05/24/19 13:07 75 100 05/24/19 13:06 77 130/90 05/24/19 13:04 75 129/86 05/24/19 13:02 79 129/87 99 05/24/19 13:00 77 134/89 05/24/19 12:58 75 135/89 05/24/19 12:57 81 99 05/24/19 12:56 76 133/87 05/24/19 12:54 76 137/87 05/24/19 12:52 78 133/87 98 05/24/19 12:48 75 120/67 05/24/19 12:47 76 98 05/24/19 12:46 81 130/86 05/24/19 12:44 73 143/94 05/24/19 12:42 78 135/92 97 05/24/19 12:40 75 133/90 05/24/19 12:37 79 148/93 99 05/24/19 12:36 81 139/89 05/24/19 12:31 85 98 05/24/19 12:26 85 99 05/24/19 12:21 81 99 05/24/19 12:16 80 98 Intake and Output 05/24/19 05/25/19 05/25/19 23:59 07:59 15:59 Intake Total 100 1387.917 Output Total 905 1275 Balance -805 112.917 Intake: IV 100 1387.917 Lactated Ringers 1,000 ml 1000 @ 125 mls/hr IV DIRECT [place] Rx#:[id number] MAGNESIUM SULFATE 40GM/ 387.917 1000ML 40 gm In 1,000 ml @ 1 GM/HR 25 mls/hr IV DIRECT [place] Rx#:[id number] Output: Urine 905 1275 Indwelling 200 Indwelling Catheter 605 1275 Other: Total, Output Amount 80 125 - Exam Breasts: Present: deferred Cardiovascular: Present: Regular rate Lungs: Present: Clear to auscultation Abdomen: Present: normal appearance (incison C/D/I, wound dressing removed. Adrianne present. NO seroma, no erythema) Uterus: Present: normal, fundal height at umbilicus Extremities: Present: normal Deep Tendon Reflex Grade: Normal but brisk +3 Incision: Present: normal, dry, intact - Labs Labs: Abnormal lab results 05/24/19 05/24/19 05/25/19 Range/Units 12:26 21:32 02:45 Magnesium 6.70 H 5.30 H 5.30 H (1.7-2.3) mg/dL 05/25/19 Range/Units 08:59 Magnesium 4.90 H (1.7-2.3) mg/dL
--- NOTE | 2019-05-25 14:36 | Post Anesthesia Evaluation ---
- Post Anesthesia Evaluation Patient Participated: Yes Airway Patent: Yes Stable Respiratory Function: Yes Nausea/Vomiting: No Temp > 96.8F: Yes Pain Manageable: Yes Adequeate Hydration: Yes Anesthesia Complications: No Block Receding Appropriately: Yes Patient on Ventilator: No
[2019-05-25] MEDS: AMPICILLIN/NS 1 GM/50 ML 1 GM/50 ML BAG IV SCH (15:54)
[2019-05-26] MEDS: HYDROcodone/ACETAMINOPHEN 5-325 MG TAB PO PRN (05:22)
[2019-05-26] MEDS ORDERED: TETANUS,DIPH,PERTUSS(ACELL) VACCINE 0.5 ML SYRINGE IM ONE (06:00)
--- NOTE | 2019-05-26 11:40 | Progress Note ---
Assessment and Plan A: POD #2 s/p Seizure Activity (prior to admission) Preeclampsia vs Eclampsia (BPs: 150s-140s/80s) P: Follow Routine Orders Continue MD management of Preeclampsia Subjective - Subjective Date of service: 05/26/19 Patient reports: appetite normal, voiding normally, pain well controlled, flatus, ambulating normally, other (Denies seizures, HAs, visual changes, N&V, and epigastic pains) [place]: in NICU, bottle feeding (and breastpump at bedside ()) Objective - Vital Signs Latest vital signs: Vital Signs Temp Pulse Resp BP BP Pulse Ox 05/26/19 10:41 61 140/77 05/26/19 07:57 97.9 F 64 16 143/89 143/89 94 05/26/19 05:22 18 05/26/19 04:09 98.0 F 69 20 151/93 95 05/26/19 00:09 98.4 F 76 20 153/97 94 05/25/19 23:32 18 05/25/19 22:32 18 05/25/19 22:20 98.2 F 70 18 156/91 95 05/25/19 22:19 73 156/91 05/25/19 17:59 97.8 F 65 18 129/74 05/25/19 16:23 69 97 05/25/19 16:18 72 98 05/25/19 16:13 68 97 05/25/19 16:08 72 97 05/25/19 16:03 67 98 05/25/19 16:00 98.3 F 16 05/25/19 15:58 74 98 05/25/19 15:53 70 98 05/25/19 15:48 71 98 05/25/19 15:43 67 98 05/25/19 15:38 66 99 05/25/19 15:35 67 140/81 05/25/19 15:33 72 98 05/25/19 15:28 69 97 05/25/19 15:23 74 152/88 98 05/25/19 15:18 62 99 05/25/19 15:13 66 98 05/25/19 15:09 70 156/96 05/25/19 15:08 64 95 05/25/19 15:03 95 H 99 05/25/19 14:58 67 97 05/25/19 14:53 67 96 05/25/19 14:48 63 98 05/25/19 14:43 65 97 05/25/19 14:38 74 98 05/25/19 14:33 75 97 05/25/19 14:28 70 97 05/25/19 14:23 71 97 05/25/19 14:18 70 98 05/25/19 14:13 67 98 05/25/19 14:08 70 98 05/25/19 14:03 67 97 05/25/19 13:58 73 98 05/25/19 13:53 74 97 05/25/19 13:48 73 97 05/25/19 13:43 78 98 05/25/19 13:38 73 98 05/25/19 13:33 78 98 05/25/19 13:28 82 98 05/25/19 13:23 83 98 05/25/19 13:18 72 97 05/25/19 13:13 86 99 05/25/19 13:08 79 98 05/25/19 13:03 85 98 05/25/19 12:58 84 99 05/25/19 12:53 73 98 05/25/19 12:48 72 98 05/25/19 12:43 72 98 05/25/19 12:38 73 98 05/25/19 12:33 70 98 05/25/19 12:28 72 98 05/25/19 12:23 71 98 05/25/19 12:18 93 H 97 05/25/19 12:13 70 97 05/25/19 12:08 68 98 05/25/19 12:03 70 99 05/25/19 11:58 79 100 05/25/19 11:53 74 98 05/25/19 11:48 74 98 05/25/19 11:43 73 97 05/25/19 11:38 71 98 Intake and Output 05/25/19 05/26/19 05/26/19 22:59 06:59 14:59 Intake Total 240 120 120 Output Total 300 Balance -60 120 120 Intake: Oral 240 120 120 Output: Urine 300 Indwelling Catheter 300 Other: Total, Intake Amount 240 120 120 Total, Output Amount 300 # Voids Indwelling Catheter 2 Void 1 - Exam Breasts: Present: normal Cardiovascular: Present: Regular rate Lungs: Present: Clear to auscultation, Normal air movement Abdomen: Present: normal appearance, soft, normal bowel sounds Uterus: Present: normal, firm, fundal height below umbilicus Incision: Present: normal, dry, intact, other (Piru in Place) - Labs Labs: Abnormal lab results 05/25/19 Range/Units 13:54 Magnesium 4.70 H (1.7-2.3) mg/dL
[2019-05-26] MEDS ORDERED: FLU VACC QUAD 2019-20 (3 YR UP)/PF 60 MCG/0.5 ML SYRINGE IM ONE (12:00)
[2019-05-26] MEDS: IBUPROFEN 800 MG TAB PO PRN (20:26)
[2019-05-27] MEDS: IBUPROFEN 800 MG TAB PO PRN (05:14)
[2019-05-27] MEDS: HYDROcodone/ACETAMINOPHEN 5-325 MG TAB PO PRN ×2 (08:55→20:29)
--- NOTE | 2019-05-27 14:55 | Progress Note ---
Assessment and Plan Eclampsia S/P c/section routine postop care Labetalol 20mg IVPx1 dose now BP not controlled, increase labetalol to 200mg TID August d/c to home tomorrow Avel GUZMÁN Subjective - Subjective Date of service: 05/27/19 Interval history: Patient doing well AAOx3 ambulatory, tolerating general diet,normal bowel and bladder function BP 150/100 on labetalol 200mg BID Patient reports: appetite normal, voiding normally, pain well controlled, ambulating normally : doing well, in NICU Objective - Vital Signs Latest vital signs: Vital Signs Temp Pulse Resp BP BP Pulse Ox 05/27/19 10:54 136/90 96 05/27/19 08:55 85 159/103 05/27/19 08:18 97.5 F L 85 18 159/103 97 05/27/19 03:54 98.3 F 57 L 18 131/70 96 05/27/19 00:10 98.4 F 60 18 157/85 96 05/26/19 22:23 56 L 140/74 140/74 05/26/19 15:59 98.4 F 67 20 133/79 96 Intake and Output 05/26/19 05/27/19 05/27/19 23:59 07:59 15:59 Intake Total 240 480 Balance 240 480 Intake: Oral 240 Intake, Free Water 480 Other: Total, Intake Amount 240 Voiding Method Toilet # Voids Void 1 2 # Bowel Movements 1 - Exam Breasts: Present: deferred Cardiovascular: Present: Regular rate Lungs: Present: Clear to auscultation Abdomen: Present: normal appearance, normal bowel sounds Uterus: Present: normal, firm, fundal height at umbilicus Extremities: Present: normal Deep Tendon Reflex Grade: Normal but brisk +3 Incision: Present: normal, dry, intact
[2019-05-28 09:05] VITALS: BP 149/80
--- NOTE | 2019-05-28 10:26 | Progress Note ---
Assessment and Plan - Patient Problems (1) S/P primary low transverse Current Visit: Yes Status: Acute Plan to address problem: POD 4 - stable Discharge to home today Follow up at [facility] in 2 days for incision check/jerson removal and blood pressure check (2) Eclampsia (toxemia of ) Current Visit: Yes Status: Acute Plan to address problem: Asymptomatic - BPs elevated but stable s/p magnesium sulfate therapy Continue Labetalol 200mg PO TID Subjective - Subjective Date of service: 05/28/19 Principal diagnosis: POD #4; s/p Primary LTCS; Eclampsia Interval history: see H&P, Consult Note, OB Progress Notes, OB Delivery Procedure Note, Event Note and 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 Progress 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 Patient reports: appetite normal, voiding normally, pain well controlled, flatus, bowel movement, ambulating normally, other (denies headache, visual disturbances or RUQ pain), no dizzy ambulation : in NICU Objective - Vital Signs Latest vital signs: Vital Signs Temp Pulse Resp BP BP Pulse Ox 05/28/19 09:02 60 149/80 05/28/19 04:19 98.1 F 69 133/95 95 05/27/19 23:56 98.3 F 62 18 155/75 97 05/27/19 20:35 98.2 F 05/27/19 20:29 20 05/27/19 20:28 64 154/88 05/27/19 14:50 86 121/77 05/27/19 10:54 136/90 96 Intake and Output 05/27/19 05/28/19 05/28/19 23:59 07:59 15:59 Intake Total 120 360 Balance 120 360 Intake: Oral 120 120 Intake, Free Water 240 Other: Total, Intake Amount 120 120 # Voids Void 1 1 - Exam Breasts: Present: normal Cardiovascular: Present: Regular rate Lungs: Present: Clear to auscultation, Normal air movement Abdomen: Present: normal appearance, soft Vulva: both: normal Uterus: Present: normal, firm, fundal height below umbilicus Extremities: Present: normal Incision: Present: normal, dry, intact, other (jerson in place) Comments: scant lochia
--- NOTE | 2019-05-28 11:47 | Discharge Summary ---
Providers - Providers Date of Admission: 05/24/19 01:14 Date of discharge: 05/28/19 Attending physician: ANGELINE COVINGTON 05/24/19 01:23 Consult to Physician [CONS] Routine Comment: Seizures affecting Consulting Provider: FRACISCO LINARES Physician Instructions: Reason For Exam: PTL 05/24/19 01:40 Consult to Physician [CONS] Routine Comment: Make aware of patient experiencing seizure Consulting Provider: DEON BOCANEGRA Physician Instructions: Make aware of patient experiencing seizure Reason For Exam: seizures affecting Primary care physician: ANGELINE COVINGTON Hospitalization Reason for admission: IUP - , other (IUP @ 30 weeks; S/P Eclamptic seizure at home) Delivery: Procedure: section, primary low transverse Episiotomy: none Laceration: none Incision: normal, dry, intact Other procedures: none complications: none Discharge diagnosis: delivery baby: male Hospital course: Pt is a 24yo BF KVNG 08/02/2019 EGA 30 + weeks was brought into the hospital via ambulance following a seizure at home. She was protected from falling by spouse, and did not hit her head. She received care at [facility] and had been diagnosed with preeclampsia 3 days prior to admission and had been started on Labetalol 200mg BID. She states she had no previous issues with her . She was therefore admitted and begun on IV Magnesium sulfate and IM Betamethasone, after which she was delivered by C Section due to a Non-reassuring tracing. course was uneventful and her BP's were managed with PO Labetolol 200mg TID. She will therefore be discharged on POD #4 in stable condition on Labetolol 200mg TID. She will follow up in the office in 1 week for BP check and in 2 days for staple removal Condition at discharge: Good Disposition: DC-01 TO HOME OR SELFCARE - Discharge Diagnoses (1) 30 weeks gestation of Status: Resolved (2) Eclampsia (toxemia of ) Status: Resolved (3) S/P primary low transverse Status: Resolved Plan - Discharge Medications Prescriptions: Ferrous Sulfate [Feosol 325 MG tab] 325 mg PO BID #60 tablet labetaloL [Labetalol 200mg TAB] 200 mg PO TID #90 tablet Ibuprofen [Motrin] 600 mg PO Q8H PRN #30 tablet PRN Reason: Pain oxyCODONE /ACETAMINOPHEN [Percocet 5/325] 1 tab PO Q6HR PRN #20 tablet PRN Reason: Pain Vit-Fe Fumar-FA [ Vitamin] 1 tab PO QDAY #30 tablet - Provider Discharge Summary Activity: routine, no sex for 6 weeks, no heavy lifting 4 weeks, no strenuous exercise Diet: routine Instructions: routine Additional instructions: [] Smoking cessation referral if applicable(refer to patient education folder for contact #) [] Refer to [facility] Booklet Call your doctor immediately for: * Fever > 100.5 * Heavy vaginal bleeding ( >1 pad per hour) * Severe persistent headache * Shortness of breath * Reddened, hot, painful area to leg or breast * Drainage or odor from incision. * Keep incision clean and dry at all times and follow doctor's instructions regarding bathing/showering Follow up in the office in 2 days for staple removal Follow up in the office in 1 week for BP check - Follow up plan Follow up: ANGELINE COVINGTON MD [Primary Care Provider] - 48 Hours
== END 2019-05-28 14:45 | disposition home or self-care (01) | DRG 765 ==
LOC: TRG 00:52 → LD 01:14 → TRG 01:14 → LD 16:45 → OB 05-25 18:02
PROVIDERS: ADMIT Obstetrics & Gynecology; ATTEND Obstetrics & Gynecology
PROC: 10D00Z1 Extraction of Products of Conception, Low, Open Approach (ICD-10-PCS; principal; 2019-05-24)
PROC: 3E0234Z Introduction of Serum, Toxoid and Vaccine into Muscle, Percutaneous Approach (ICD-10-PCS; 2019-05-26)
DX: O76 Abnormality in fetal heart rate and rhythm complicating labor and delivery (principal); O15.1 Eclampsia complicating labor; O10.92 Unspecified pre-existing hypertension complicating childbirth; O99.62 Diseases of the digestive system complicating childbirth; K21.9 Gastro-esophageal reflux disease without esophagitis; O69.81X0 Labor and delivery complicated by cord around neck, without compression, not applicable or unspecified; Z3A.30 30 weeks gestation of pregnancy; Z37.0 Single live birth; Z23 Encounter for immunization
CPT/HCPCS: 36415; 76816; 76819; 82565; 83615; 83735; 84450; 84460; 84550; 85014; 85018; 85025; 86592; 86706; 86762; 86803; 86850; 86900; 86901; 87806; 88307; 90471; 90686; 90715; G0378; J0290; J0360; J0690; J0702; J1953; J2270; J2590; J2765; J3475; J3490; J7030; J7120

== ENCOUNTER 2019-07-03 23:07 | Emergency (ER) | payer MEDICAID ==
[2019-07-03 23:15] VITALS: BP 119/72
== END 2019-07-03 23:55 | disposition left against medical advice (07) ==
LOC: ED 23:07
DX: G43.909 Migraine, unspecified, not intractable, without status migrainosus (principal); Z53.21 Procedure and treatment not carried out due to patient leaving prior to being seen by health care provider

== ENCOUNTER 2019-11-08 12:39 | Emergency (ER) | payer MEDICAID ==
[2019-11-08 13:11] VITALS: BP 88/56
[2019-11-08 14:47] LABS: Hematocrit 38.9 % (30.3-42.9); Lymphocytes # (Auto) 1.1 K/mm3 (1.2-5.4); Lymphocytes % (Auto) 25.3 % (13.4-35.0); Mean Corpuscular HGB Conc 33 % (30-34); Mean Corpuscular Volume 92 fl (79-97); Monocytes # (Auto) 0.3 K/mm3 (0.0-0.8); Monocytes % (Auto) 7.5 % (0.0-7.3); Platelet Count 272 K/mm3 (140-440); Red Blood Count 4.24 M/mm3 (3.65-5.03); Red Cell Distribution Width 13.7 % (13.2-15.2)
[2019-11-08 15:10] LABS: Alanine Aminotransferase 15 units/L (7-56); Albumin 4.5 g/dL (3.9-5); BUN/Creatinine Ratio 14; Blood Urea Nitrogen 11 mg/dL (7-17); Calcium 9.5 mg/dL (8.4-10.2); Hemolysis Index 10
[2019-11-08] MEDS ORDERED: MORPHINE 4 MG/1 ML INJ IV ONE (15:10)
[2019-11-08] MEDS ORDERED: ONDANSETRON 4 MG/2 ML INJ IV ONE (15:10)
[2019-11-08] MEDS ORDERED: SODIUM CHLORIDE 0.9% 1000 ML 1,000 ML IV ONE (15:10)
[2019-11-08 15:21] LABS: Bilirubin,Urine NEG (Negative); Blood,Urine NEG (Negative); Color,Urine Yellow (Yellow); Mucus,Urine 3+ /HPF; Protein,Urine <15 mg/dL mg/dL (Negative)
--- NOTE | 2019-11-08 15:21 | Emergency Department Report ---
ED Abdominal Pain HPI - General Chief Complaint: Abdominal Pain Stated Complaint: LOWER ABD PAIN Time Seen by Provider: 11/08/19 14:36 Source: patient, EMS Mode of arrival: Ambulatory Limitations: No Limitations - History of Present Illness Initial Comments: pt is a 24 yo female who presents to the ED with c/o severe left lower quadrant abdominal pain that began today. she states she has been having N/V for 3 days. she states she had a normal BM yesterday. she denies any fever, dysuria, hematochezia, hematoemesis, melena. PMHx HTN. past abdominal surgical history of 5 months ago. she states she has a nexplanon as control. no allergies to meds. - Related Data Home Medications Medication Instructions Recorded Confirmed Last Taken Labetalol 100mg TAB 1 tab PO BID 05/24/19 05/24/19 05/23/19 22:00 1 Previous Rx's Medication Instructions Recorded Last Taken Type Ibuprofen [Motrin] 600 mg PO Q8H PRN #30 tablet 05/25/19 Unknown Rx oxyCODONE /ACETAMINOPHEN [Percocet 1 tab PO Q6HR PRN #20 tablet 05/25/19 Unknown Rx 5/325] Ferrous Sulfate [Feosol 325 MG tab] 325 mg PO BID #60 tablet 05/28/19 Unknown Rx Vit-Fe Fumar-FA [ 1 tab PO QDAY #30 tablet 05/28/19 Unknown Rx Vitamin] labetaloL [Labetalol 200mg TAB] 200 mg PO TID #90 tablet 05/28/19 Unknown Rx Acetaminophen/Codeine [Tylenol 1 tab PO Q6H PRN #10 tab 11/08/19 Unknown Rx /Codeine # 3 tab] Ondansetron [Zofran Odt] 4 mg PO Q8HR PRN #10 tab.rapdis 11/08/19 Unknown Rx metroNIDAZOLE [Flagyl] 500 mg PO BID 7 Days #14 tab 11/08/19 Unknown Rx Allergies Allergy/AdvReac Type Severity Reaction Status Date / Time No Known Allergies Allergy Verified 04/27/19 05:23 ED Review of Systems ROS: Stated complaint: LOWER ABD PAIN Other details as noted in HPI Comment: All other systems reviewed and negative ED Past Medical Hx - Past Medical History Previous Medical History?: Yes Hx Hypertension: Yes Hx Heart Attack/AMI: No Hx Diabetes: No Hx Deep Vein Thrombosis: No Hx Liver Disease: No Hx Renal Disease: No Hx Sickle Cell Disease: No Hx Seizures: Yes (eclampsia 05/23/2019) Hx Asthma: No Hx COPD: No Hx HIV: No - Surgical History Past Surgical History?: Yes Hx Coronary Stent: No Hx Open Heart Surgery: No Hx Pacemaker: No Hx Internal Defibrillator: No Hx Cholecystectomy: No Hx Appendectomy: No Hx Breast Surgery: No Additional Surgical History: c-sec x 1 - Social History Smoking Status: Current Every Day Smoker Substance Use Type: None - Medications Home Medications: Home Medications Medication Instructions Recorded Confirmed Last Taken Type Labetalol 100mg TAB 1 tab PO BID 05/24/19 05/24/19 05/23/19 22:00 History 1 Ibuprofen [Motrin] 600 mg PO Q8H PRN #30 tablet 05/25/19 Unknown Rx oxyCODONE /ACETAMINOPHEN [Percocet 1 tab PO Q6HR PRN #20 tablet 05/25/19 Unknown Rx 5/325] Ferrous Sulfate [Feosol 325 MG tab] 325 mg PO BID #60 tablet 05/28/19 Unknown Rx Vit-Fe Fumar-FA [ 1 tab PO QDAY #30 tablet 05/28/19 Unknown Rx Vitamin] labetaloL [Labetalol 200mg TAB] 200 mg PO TID #90 tablet 05/28/19 Unknown Rx Acetaminophen/Codeine [Tylenol 1 tab PO Q6H PRN #10 tab 11/08/19 Unknown Rx /Codeine # 3 tab] Ondansetron [Zofran Odt] 4 mg PO Q8HR PRN #10 tab.rapdis 11/08/19 Unknown Rx metroNIDAZOLE [Flagyl] 500 mg PO BID 7 Days #14 tab 11/08/19 Unknown Rx ED Physical Exam - General Limitations: No Limitations General appearance: alert, other (appears to be in moderate distress secondary to pain) - Head Head exam: Present: atraumatic, normocephalic - Eye Eye exam: Present: normal appearance - ENT ENT exam: Present: mucous membranes moist - Respiratory Respiratory exam: Present: normal lung sounds bilaterally. Absent: respiratory distress, wheezes, rales, rhonchi, stridor, chest wall tenderness, accessory muscle use, decreased breath sounds, prolonged expiratory - Cardiovascular Cardiovascular Exam: Present: regular rate, normal rhythm, normal heart sounds. Absent: systolic murmur, diastolic murmur, rubs, gallop - GI/Abdominal GI/Abdominal exam: Present: soft, tenderness (LLQ), guarding (voluntary), normal bowel sounds. Absent: distended, rebound, rigid - External exam: Present: normal external exam. Absent: erythema, swelling, lesions, lacerations, ecchymosis, bleeding Speculum exam: Present: vaginal discharge (clear, watery), cervical discharge (clear, watery). Absent: erythema, vaginal bleeding, foreign body Bi-manual exam: Present: cervical motion tendernes. Absent: adnexal tenderness, adnexal mass - Neurological Exam Neurological exam: Present: alert, oriented X3 - Psychiatric Psychiatric exam: Present: normal affect, normal mood - Skin Skin exam: Present: warm, dry, intact ED Course Vital Signs 11/08/19 11/08/19 12:50 15:37 Temperature 98.8 F Pulse Rate 81 Respiratory 20 20 Rate Blood Pressure 88/56 O2 Sat by Pulse 98 Oximetry ED Medical Decision Making - Lab Data Result diagrams: 11/08/19 14:11 11/08/19 14:11 Lab Results 11/08/19 11/08/19 11/08/19 Range/Units 14:11 14:11 14:11 WBC 4.5 (4.5-11.0) K/mm3 RBC 4.24 (3.65-5.03) M/mm3 Hgb 13.0 (10.1-14.3) gm/dl Hct 38.9 (30.3-42.9) % MCV 92 (79-97) fl MCH 31 (28-32) pg MCHC 33 (30-34) % RDW 13.7 (13.2-15.2) % Plt Count 272 (140-440) K/mm3 Lymph % (Auto) 25.3 (13.4-35.0) % [place] % (Auto) 7.5 H (0.0-7.3) % Eos % (Auto) 1.0 (0.0-4.3) % Baso % (Auto) 1.0 (0.0-1.8) % Lymph # 1.1 L (1.2-5.4) K/mm3 [place] # 0.3 (0.0-0.8) K/mm3 Eos # 0.0 (0.0-0.4) K/mm3 Baso # 0.0 (0.0-0.1) K/mm3 Seg Neutrophils % 65.2 (40.0-70.0) % Seg Neutrophils # 2.9 (1.8-7.7) K/mm3 Sodium 138 (137-145) mmol/L Potassium 4.4 (3.6-5.0) mmol/L Chloride 103.2 (98-107) mmol/L Carbon Dioxide 23 (22-30) mmol/L Anion Gap 16 mmol/L BUN 11 (7-17) mg/dL Creatinine 0.8 (0.6-1.2) mg/dL Estimated GFR > 60 ml/min BUN/Creatinine Ratio 14 % Glucose 97 (65-100) mg/dL Calcium 9.5 (8.4-10.2) mg/dL Total Bilirubin 1.10 (0.1-1.2) mg/dL AST 19 (5-40) units/L ALT 15 (7-56) units/L Alkaline Phosphatase 40 (35-129) units/L Total Protein 7.4 (6.3-8.2) g/dL Albumin 4.5 (3.9-5) g/dL Albumin/Globulin Ratio 1.6 % Lipase 11 L (13-60) units/L HCG, Qual Negative (Negative) Urine Color (Yellow) Urine Turbidity (Clear) Urine pH (5.0-7.0) Ur Specific [place] (1.003-1.030) Urine Protein (Negative) mg/dL Urine Glucose (UA) (Negative) mg/dL Urine Ketones (Negative) mg/dL Urine Blood (Negative) Urine Nitrite (Negative) Urine Bilirubin (Negative) Urine Urobilinogen (<2.0) mg/dL Ur Leukocyte Esterase (Negative) Urine WBC (Auto) (0.0-6.0) /HPF Urine RBC (Auto) (0.0-6.0) /HPF U Epithel Cells (Auto) (0-13.0) /HPF Urine Mucus /HPF 11/08/19 Range/Units 15:06 WBC (4.5-11.0) K/mm3 RBC (3.65-5.03) M/mm3 Hgb (10.1-14.3) gm/dl Hct (30.3-42.9) % MCV (79-97) fl MCH (28-32) pg MCHC (30-34) % RDW (13.2-15.2) % Plt Count (140-440) K/mm3 Lymph % (Auto) (13.4-35.0) % [place] % (Auto) (0.0-7.3) % Eos % (Auto) (0.0-4.3) % Baso % (Auto) (0.0-1.8) % Lymph # (1.2-5.4) K/mm3 [place] # (0.0-0.8) K/mm3 Eos # (0.0-0.4) K/mm3 Baso # (0.0-0.1) K/mm3 Seg Neutrophils % (40.0-70.0) % Seg Neutrophils # (1.8-7.7) K/mm3 Sodium (137-145) mmol/L Potassium (3.6-5.0) mmol/L Chloride (98-107) mmol/L Carbon Dioxide (22-30) mmol/L Anion Gap mmol/L BUN (7-17) mg/dL Creatinine (0.6-1.2) mg/dL Estimated GFR ml/min BUN/Creatinine Ratio % Glucose (65-100) mg/dL Calcium (8.4-10.2) mg/dL Total Bilirubin (0.1-1.2) mg/dL AST (5-40) units/L ALT (7-56) units/L Alkaline Phosphatase (35-129) units/L Total Protein (6.3-8.2) g/dL Albumin (3.9-5) g/dL Albumin/Globulin Ratio % Lipase (13-60) units/L HCG, Qual (Negative) Urine Color Yellow (Yellow) Urine Turbidity Clear (Clear) Urine pH 5.0 (5.0-7.0) Ur Specific [place] 1.025 (1.003-1.030) Urine Protein <15 mg/dl (Negative) mg/dL Urine Glucose (UA) Neg (Negative) mg/dL Urine Ketones Tr (Negative) mg/dL Urine Blood Neg (Negative) Urine Nitrite Neg (Negative) Urine Bilirubin Neg (Negative) Urine Urobilinogen 2.0 (<2.0) mg/dL Ur Leukocyte Esterase Neg (Negative) Urine WBC (Auto) 1.0 (0.0-6.0) /HPF Urine RBC (Auto) 4.0 (0.0-6.0) /HPF U Epithel Cells (Auto) 5.0 (0-13.0) /HPF Urine Mucus 3+ /HPF - Radiology Data Radiology results: report reviewed CT abdomen pelvis w con INDICATION: Left lower quadrant abdominal pain, nausea, vomiting for one day. TECHNIQUE: All CT scans at this location are performed using the following dose modulation technique: Automated exposure control. Helical slices were obtained through the abdomen and pelvis following the administration of 100 cc of Omnipaque 300 COMPARISON: None available. FINDINGS: Abdomen: The liver, spleen, pancreas, adrenal glands, and kidneys show no acute abnormality. The aorta is normal in diameter. There is no obstruction, inflammation, or free air. Pelvis: There is no obstruction, inflammation, or free air. There are no abnorma l fluid collections. The appendix is not visualized. On review of bone windows, no acute osseous abnormalities are seen. IMPRESSION: 1. There is no obstruction, inflammation, or free air. There are no abnormal fluid collections. The appendix is not visualized. Signer Name: Darinel Ying MD Signed: 11/08/2019 4:45 PM Workstation Name: [id number] Transcribed By: Dictated By: Darinel Ying MD Electronically Authenticated By: Darinel Ying MD Signed Date/Time: 11/08/195 DD/ 1641 TD/TT: Pelvic ultrasound complete INDICATION: Left lower quadrant pelvic pain FINDINGS: Transabdominal and transvaginal imaging is performed. Duplex imaging is performed through the ovaries. FINDINGS: The uterus measures 8.4 cm in length. Endometrial stripe is 4 mm. The right ovary measures 4 cm and the left ovary measures 3 cm. There is a 2 cm cyst in the left ovary. There is Doppler flow in both ovaries. IMPRESSION: There is a 2 cm cyst in the left ovary. This is characteristic of physiologic cyst. Pelvic ultrasound is otherwise unremarkable. Signer Name: Darinel Ying MD Signed: 11/08/2019 7:56 PM Workstation Name: [id number] Transcribed By: SS Dictated By: Darinel Ying MD Electronically Authenticated By: Darinel Ying MD Signed Date/Time: 11/08/191955 DD/ 52 TD/TT: - Medical Decision Making pt is a 24 yo female who presents to the ED with c/o severe left lower quadrant abdominal pain that began today. she states she has been having N/V for 3 days. she states she had a normal BM yesterday. she denies any fever, dysuria, hematochezia, hematoemesis, melena. PMHx HTN. past abdominal surgical history of 5 months ago. she states she has a nexplanon as control. no allergies to meds. On exam patient appears to be in a moderate amount of discomfort, she has left lower quadrant tenderness to palpation, voluntary guarding, no rigidity, normal bowel sounds, no peritoneal signs, she has clear watery discharge and cervical motion tenderness on exam, lending advisor BAYLEE Boswell, no adnexal tenderness or masses palpable. CT abd pelvis with contrast: 1. There is no obstruction, inflammation, or free air. There are no abnormal fluid collections. The appendix is not visualized. OB US: There is a 2 cm cyst in the left ovary. This is characteristic of physiologic cyst. Pelvic ultrasound is otherwise unremarkable. Wet prep shows that evidence of BV. G/C swab sent and patient prophylactically treated for G/C with ceftriaxone and azithromycin. Physical exam findings do appear consistent with PID. Now states that she has had vaginal discharge for the last 2 weeks. Patient given pain medication, nausea medication, fluids and symptoms improved and she was able to tolerate p.o. intake and had no further episodes of vomiting. Patient given prescription for Flagyl, Tylenol with codeine, Zofran. Advised patient Please take medication as prescribed. do not drink alcohol while taking medication. Do not drive or operate heavy machinery while taking pain medication. Increase your water intake. 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 Avoid sexual intercourse. Please have partner tested and treated as well. Please follow-up with [facility] or the health department for full STD panel. Return to the emergency room for any new or worsening symptoms. - Differential Diagnosis colitis, divericulitis, IBD, TOA, Ovarian torsion, STD, UTI, PID, mass, LBO Critical care attestation.: If time is entered above; I have spent that time in minutes in the direct care of this critically ill patient, excluding procedure time. ED Disposition Clinical Impression: PID (acute pelvic inflammatory disease), Bacterial vaginosis Abdominal pain Qualifiers: Abdominal location: left lower quadrant Qualified Code(s): R10.32 - Left lower quadrant pain Nausea & vomiting Qualifiers: Vomiting type: unspecified Vomiting Intractability: non-intractable Qualified Code(s): R11.2 - Nausea with vomiting, unspecified Ovarian cyst Qualifiers: Laterality: left Qualified Code(s): N83.202 - Unspecified ovarian cyst, left side Disposition: TO HOME OR SELFCARE Is pt being admited?: No Does the pt Need Aspirin: No Condition: Stable Instructions: Bacterial Vaginosis (ED), Ovarian Cyst (ED), Abdominal Pain (ED) Additional Instructions: Please take medication as prescribed. do not drink alcohol while taking medication. Do not drive or operate heavy machinery while taking pain medication. Increase your water intake. 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 Avoid sexual intercourse. Please have partner tested and treated as well. Please follow-up with [facility] or the health department for full STD panel. Return to the emergency room for any new or worsening symptoms. Prescriptions: metroNIDAZOLE [Flagyl] 500 mg PO BID 7 Days #14 tab Acetaminophen/Codeine [Tylenol /Codeine # 3 tab] 1 tab PO Q6H PRN #10 tab PRN Reason: Pain , Severe (7-10) Ondansetron [Zofran Odt] 4 mg PO Q8HR PRN #10 tab.rapdis PRN Reason: Nausea And Vomiting Referrals: PRIMARY CARE,MD [Primary Care Provider] - 2-3 Days your, leadite heater [Other] - 2-3 Days [facility] [Outside] - 2-3 Days Forms: STI Treatment and Prevention Time of Disposition: 20:47 Print Language: MICRONESIAN
--- NOTE | 2019-11-08 16:50 | Cat Scan Report ---
CT abdomen pelvis w con INDICATION: Left lower quadrant abdominal pain, nausea, vomiting for one day. TECHNIQUE: All CT scans at this location are performed using the following dose modulation technique: Automated exposure control. Helical slices were obtained through the abdomen and pelvis following the administr ation of 100 cc of Omnipaque 300 COMPARISON: None available. FINDINGS: Abdomen: The liver, spleen, pancreas, adrenal glands, and kidneys show no acute abnormality. The aort a is normal in diameter. There is no obstruction, inflammation, or free air. Pelvis: There is no obstruction, inflammation, or free air. There are no abnormal fluid collections. The appendix is not visualized. On review of bone windows, no acute osseous abnormalities are seen. IMPRESSION: 1. There is no obstruction, inflammation, or free air. There are no abnormal fluid collections. The a ppendix is not visualized. Signer Name: Darinel Ying MD Signed: 11/08/2019 4:45 PM Workstation Name: [id number]
--- NOTE | 2019-11-08 20:00 | Ultrasound Report ---
Pelvic ultrasound complete INDICATION: Left lower quadrant pelvic pain FINDINGS: Transabdominal and transvaginal imaging is performed. Duplex imaging is performed through the ovaries . FINDINGS: The uterus measures 8.4 cm in length. Endometrial stripe is 4 mm. The right ovary measures 4 cm and the left ovary measures 3 cm. There is a 2 cm cyst in the left ovary. There is Doppler flow in both ovaries. IMPRESSION: There is a 2 cm cyst in the left ovary. This is characteristic of physiologic cyst. Pelvic ultrasound is otherwise unremarkable. Signer Name: Darinel Ying MD Signed: 11/08/2019 7:56 PM Workstation Name: [id number]
[2019-11-08] MEDS ORDERED: AZITHROMYCIN 250 MG TAB PO ONE (20:42)
[2019-11-08] MEDS ORDERED: LIDOCAINE-MPF (1%) 10 MG/1 ML VIAL 5 ML INFILTRATI ONE (20:42)
== END 2019-11-08 21:15 | disposition home or self-care (01) ==
LOC: ED 12:39
DX: N76.0 Acute vaginitis (principal); B96.89 Other specified bacterial agents as the cause of diseases classified elsewhere; N73.8 Other specified female pelvic inflammatory diseases; N83.202 Unspecified ovarian cyst, left side
CPT/HCPCS: 36415; 74177; 76830; 80053; 81001; 83690; 84703; 85025; 87210; 87591; 93975; 96361; 96374; 96375; 99285; J0696; J2270; J2405; J7030; Q9967

== ENCOUNTER 2021-09-13 17:42 | Emergency (ER) | payer OTHER ==
[2021-09-13 19:41] LABS: Basophils % (Auto) 0.3 % (0.0-1.8); Eosinophils % (Auto) 0.7 % (0.0-4.3); Hematocrit 39.7 % (30.3-42.9); Hemoglobin 13.5 gm/dl (10.1-14.3); Lymphocytes # (Auto) 0.3 K/mm3 (1.2-5.4); Lymphocytes % (Auto) 5.5 % (13.4-35.0); Mean Corpuscular HGB Conc 34 % (30-34); Mean Corpuscular Volume 93 fl (79-97); Monocytes # (Auto) 0.7 K/mm3 (0.0-0.8); Monocytes % (Auto) 12.1 % (0.0-7.3); Platelet Count 216 K/mm3 (140-440); Red Blood Count 4.27 M/mm3 (3.65-5.03); Red Cell Distribution Width 12.7 % (13.2-15.2)
[2021-09-13 19:44] LABS: BUN/Creatinine Ratio 18; Blood Urea Nitrogen 14 mg/dL (7-17); Calcium 9.5 mg/dL (8.4-10.2); Hemolysis Index 15
[2021-09-13] MEDS ORDERED: SODIUM CHLORIDE 0.9% 1000 ML 1,000 ML IV ONE (22:44)
[2021-09-13] MEDS ORDERED: ONDANSETRON 4 MG/2 ML INJ IV ONE (22:44)
--- NOTE | 2021-09-13 22:48 | Emergency Department Report ---
ED General Adult HPI - General Chief complaint: Weakness Stated complaint: CANT EAT/BODY PAIN Time Seen by Provider: 09/13/21 22:27 Source: patient Mode of arrival: Ambulatory Limitations: No Limitations - History of Present Illness Initial comments: Is a 26-year-old female who presents for nausea and body aches and abdominal pain with nausea vomiting x3 days. Patient states unable to tolerate p.o. for 2 days. Patient denies fevers or chills however. There is left flank pain. Patient denies dysuria frequency or urgency. Last menstrual cycle 1 month ago. Patient denies vaginal discharge or concern for STI. Last p.o. intake was 1 day ago. Symptoms are exacerbated by p.o. intake. Symptoms are relieved by nothing tried. - Related Data Home Medications Medication Instructions Recorded Confirmed Last Taken Labetalol 100mg TAB 1 tab PO BID 05/24/19 05/24/19 05/23/19 22:00 1 Previous Rx's Medication Instructions Recorded Last Taken Type Ibuprofen [Motrin] 600 mg PO Q8H PRN #30 tablet 05/25/19 Unknown Rx oxyCODONE /ACETAMINOPHEN [Percocet 1 tab PO Q6HR PRN #20 tablet 05/25/19 Unknown Rx 5/325] Ferrous Sulfate [Feosol 325 MG tab] 325 mg PO BID #60 tablet 05/28/19 Unknown Rx Vit-Fe Fumar-FA [ 1 tab PO QDAY #30 tablet 05/28/19 Unknown Rx Vitamin] labetaloL [Labetalol 200mg TAB] 200 mg PO TID #90 tablet 05/28/19 Unknown Rx Acetaminophen/Codeine [Tylenol 1 tab PO Q6H PRN #10 tab 11/08/19 Unknown Rx /Codeine # 3 tab] Ondansetron [Zofran Odt] 4 mg PO Q8HR PRN #10 tab.rapdis 11/08/19 Unknown Rx metroNIDAZOLE [Flagyl] 500 mg PO BID 7 Days #14 tab 11/08/19 Unknown Rx Dicyclomine [Bentyl] 10 mg PO QID PRN #12 capsule 09/14/21 Unknown Rx Ibuprofen [Motrin 800 MG tab] 800 mg PO Q8HR PRN #30 tablet 09/14/21 Unknown Rx Ondansetron [Zofran Odt] 4 mg PO Q8HR PRN #12 tab.rapdis 09/14/21 Unknown Rx Allergies Allergy/AdvReac Type Severity Reaction Status Date / Time No Known Allergies Allergy Verified 04/27/19 05:23 ED Review of Systems ROS: Stated complaint: CANT EAT/BODY PAIN Other details as noted in HPI Constitutional: malaise Eyes: denies: eye pain, eye discharge, vision change ENT: denies: ear pain, throat pain, congestion Respiratory: denies: cough, shortness of breath, wheezing Cardiovascular: denies: chest pain, palpitations Endocrine: no symptoms reported Gastrointestinal: abdominal pain, nausea, vomiting. denies: diarrhea, constipation, melena Genitourinary: denies: urgency, dysuria, frequency, hematuria, discharge Musculoskeletal: back pain Skin: denies: rash, lesions Neurological: denies: headache, weakness, paresthesias, vertigo Psychiatric: denies: anxiety, depression Hematological/Lymphatic: denies: easy bleeding, easy bruising ED Past Medical Hx - Past Medical History Hx Hypertension: Yes Hx Heart Attack/AMI: No Hx Diabetes: No Hx Deep Vein Thrombosis: No Hx Liver Disease: No Hx Renal Disease: No Hx Sickle Cell Disease: No Hx Seizures: Yes (eclampsia 05/23/2019) Hx Asthma: No Hx COPD: No Hx HIV: No - Surgical History Hx Coronary Stent: No Hx Open Heart Surgery: No Hx Pacemaker: No Hx Internal Defibrillator: No Hx Cholecystectomy: No Hx Appendectomy: No Hx Breast Surgery: No Additional Surgical History: c-sec - Social History Smoking Status: Former Smoker - Medications Home Medications: Home Medications Medication Instructions Recorded Confirmed Last Taken Type Labetalol 100mg TAB 1 tab PO BID 05/24/19 05/24/19 05/23/19 22:00 History 1 Ibuprofen [Motrin] 600 mg PO Q8H PRN #30 tablet 05/25/19 Unknown Rx oxyCODONE /ACETAMINOPHEN [Percocet 1 tab PO Q6HR PRN #20 tablet 05/25/19 Unknown Rx 5/325] Ferrous Sulfate [Feosol 325 MG tab] 325 mg PO BID #60 tablet 05/28/19 Unknown Rx Vit-Fe Fumar-FA [ 1 tab PO QDAY #30 tablet 05/28/19 Unknown Rx Vitamin] labetaloL [Labetalol 200mg TAB] 200 mg PO TID #90 tablet 05/28/19 Unknown Rx Acetaminophen/Codeine [Tylenol 1 tab PO Q6H PRN #10 tab 11/08/19 Unknown Rx /Codeine # 3 tab] Ondansetron [Zofran Odt] 4 mg PO Q8HR PRN #10 tab.rapdis 11/08/19 Unknown Rx metroNIDAZOLE [Flagyl] 500 mg PO BID 7 Days #14 tab 11/08/19 Unknown Rx Dicyclomine [Bentyl] 10 mg PO QID PRN #12 capsule 09/14/21 Unknown Rx Ibuprofen [Motrin 800 MG tab] 800 mg PO Q8HR PRN #30 tablet 09/14/21 Unknown Rx Ondansetron [Zofran Odt] 4 mg PO Q8HR PRN #12 tab.rapdis 09/14/21 Unknown Rx ED Physical Exam - General Limitations: No Limitations General appearance: alert, in no apparent distress - Head Head exam: Present: normocephalic, normal inspection - Eye Eye exam: Present: EOMI Pupils: Present: normal accommodation - ENT ENT exam: Present: mucous membranes moist - Neck Neck exam: Present: normal inspection, full ROM. Absent: tenderness, lymphadenopathy - Respiratory Respiratory exam: Present: normal lung sounds bilaterally. Absent: wheezes, stridor, chest wall tenderness - Cardiovascular Cardiovascular Exam: Present: regular rate, normal rhythm, normal heart sounds. Absent: systolic murmur, diastolic murmur, rubs, gallop - GI/Abdominal GI/Abdominal exam: Present: soft, tenderness, normal bowel sounds. Absent: distended, guarding (Left flank), rebound, rigid, bruit, hernia - Rectal Rectal exam: Present: deferred - Extremities Exam Extremities exam: Present: normal inspection, full ROM, normal capillary refill. Absent: tenderness - Back Exam Back exam: Present: normal inspection, full ROM, CVA tenderness (L). Absent: CVA tenderness (R) - Neurological Exam Neurological exam: Present: alert, oriented X3, CN II-XII intact, normal gait - Expanded Neurological Exam Expanded Patient oriented to: Present: person, place, time Speech: Present: fluid speech Motor strength exam: RUE: 5, LUE: 5, RLE: 5, LLE: 5 Best Eye Response ([place]): (4) open spontaneously Best Motor Response ([place]): (6) obeys commands Best Verbal Response ([place]): (5) oriented [place] Total: 15 - Psychiatric Psychiatric exam: Present: normal affect, normal mood - Skin Skin exam: Present: warm, dry, intact, normal color. Absent: rash ED Course Vital Signs 09/13/21 19:01 Temperature 99.1 F Pulse Rate 74 Respiratory 18 Rate Blood Pressure 117/68 O2 Sat by Pulse 97 Oximetry ED Medical Decision Making - Lab Data Result diagrams: 09/13/21 19:07 09/13/21 19:07 Labs 09/13/21 09/13/21 09/14/21 19:07 19:07 Unknown WBC 6.1 RBC 4.27 Hgb 13.5 Hct 39.7 MCV 93 MCH 32 MCHC 34 RDW 12.7 L Plt Count 216 Lymph % (Auto) 5.5 L [place] % (Auto) 12.1 H Eos % (Auto) 0.7 Baso % (Auto) 0.3 Lymph # (Auto) 0.3 L [place] # (Auto) 0.7 Eos # (Auto) 0.0 Baso # (Auto) 0.0 Seg Neutrophils % 81.4 H Seg Neutrophils # 5.0 Sodium 141 Potassium 4.2 Chloride 102.7 Carbon Dioxide 24 Anion Gap 19 BUN 14 Creatinine 0.8 Estimated GFR > 60 BUN/Creatinine Ratio 18 Glucose 83 Calcium 9.5 Urine Color Yellow Urine Turbidity Clear Urine pH 5.0 Ur Specific [place] 1.024 Urine Protein <15 mg/dl Urine Glucose (UA) Neg Urine Ketones 80 Urine Blood Neg Urine Nitrite Neg Urine Bilirubin Neg Urine Urobilinogen 2.0 Ur Leukocyte Esterase Neg Urine WBC (Auto) < 1.0 Urine RBC (Auto) 2.0 U Epithel Cells (Auto) 2.0 Urine Mucus 1+ Urine HCG, Qual Negative - Radiology Data Radiology results: report reviewed, image reviewed ABDOMEN 1 VIEW 09/14/2021 12:15 AM INDICATION / CLINICAL INFORMATION: abd pain. COMPARISON: None available. FINDINGS: TUBES / LINES: None. BOWEL GAS PATTERN: No significant abnormality. FREE AIR / EXTRALUMINAL GAS: None. ADDITIONAL FINDINGS: Umbilical piercing IMPRESSION: 1. No acute findings. Signer Name: Ruiz Martinez MD Signed: 09/14/2021 1:22 AM Workstation Name: [id number] Transcribed By: TL Dictated By: Ruiz Martinez MD Electronically Authenticated By: Ruiz Martinez MD Signed Date/Time: 09/14/21121 DD/ 0 TD/TT: - Medical Decision Making Is a 26-year-old female who presents for nausea and body aches and abdominal pain with nausea vomiting x3 days. Patient states unable to tolerate p.o. for 2 days. Patient denies fevers or chills however. There is left flank pain. Patient denies dysuria frequency or urgency. Last menstrual cycle 1 month ago. Patient denies vaginal discharge or concern for STI. Last p.o. intake was 1 day ago. Symptoms are exacerbated by p.o. intake. Symptoms are relieved by nothing tried. Patient endorses symptoms are improved with medications given in ED. Patient is tolerating p.o. intake at this time without nausea vomiting. Plan DC to home, continue to hydrate as directed. Follow-up with your primary care doctor in 2 to 3 days. Patient verbalized agreement and understanding with discharge plan. Patient DC'd home in stable condition at this time. Critical care attestation.: If time is entered above; I have spent that time in minutes in the direct care of this critically ill patient, excluding procedure time. ED Disposition Clinical Impression: Abdominal pain Qualifiers: Abdominal location: generalized Qualified Code(s): R10.84 - Generalized abdominal pain Disposition: 01 HOME / SELF CARE / HOMELESS Is pt being admited?: No Does the pt Need Aspirin: No Condition: Stable Instructions: Abdominal Pain, Adult, [id number], Rehydration, Adult Additional Instructions: Take medication as prescribed, hydrate as directed follow-up with your doctor in 2 to 3 days. Return to emergency department should symptoms worsen. Prescriptions: Dicyclomine [Bentyl] 10 mg PO QID PRN #12 capsule PRN Reason: abdominal spasms Ibuprofen [Motrin 800 MG tab] 800 mg PO Q8HR PRN #30 tablet PRN Reason: pain Ondansetron [Zofran Odt] 4 mg PO Q8HR PRN #12 tab.rapdis PRN Reason: Nausea Referrals: PRIMARY CARE, [Primary Care Provider] - 3-5 Days GORDON TORRES MD [Staff Physician] - 3-5 Days Forms: Work/School Release Form(ED) Time of Disposition: 02:15
[2021-09-14 00:32] LABS: Bilirubin,Urine NEG (Negative); Blood,Urine NEG (Negative); Color,Urine Yellow (Yellow); Mucus,Urine 1+ /HPF; Protein,Urine <15 mg/dL mg/dL (Negative); WBC,Urine < 1.0 /HPF (0.0-6.0)
[2021-09-14 00:43] LABS: HCG Qualitative,Urine Negative (Negative)
[2021-09-14] MEDS ORDERED: IBUPROFEN 800 MG TAB PO ONE (01:08)
--- NOTE | 2021-09-14 01:26 | XRay Report ---
ABDOMEN 1 VIEW 09/14/2021 12:15 AM INDICATION / CLINICAL INFORMATION: abd pain. COMPARISON: None available. FINDINGS: TUBES / LINES: None. BOWEL GAS PATTERN: No significant abnormality. FREE AIR / EXTRALUMINAL GAS: None. ADDITIONAL FINDINGS: Umbilical piercing IMPRESSION: 1. No acute findings. Signer Name: Ruiz Martinez MD Signed: 09/14/2021 1:22 AM Workstation Name: [id number]
[2021-09-14 02:33] VITALS: BP 118/69
== END 2021-09-14 02:33 | disposition home or self-care (01) ==
LOC: ED 17:42
DX: R10.9 Unspecified abdominal pain (principal); I10 Essential (primary) hypertension; R56.9 Unspecified convulsions; Z98.890 Other specified postprocedural states
CPT/HCPCS: 36415; 74018; 80048; 81001; 81025; 85025; 96361; 96374; 99284; J2405; J7030